=== PATIENT | male | born 1955 | race Caucasian/White ===

== ENCOUNTER 2017-11-17 13:50 | Emergency (ER) | payer OTHER ==
[2017-11-17 15:53] LABS: Absolute Lymphocytes (CBC) 1.6 K/uL (0.7-4.9); Absolute Monocytes 0.8 K/uL (0.1-1.3); Absolute Neutrophil 4.9 K/uL (1.8-8.0); Basophils % 0.3 % (0-1.3); Hematocrit 42.8 % (39.6-49.0); Lymphocytes % 21.7 % (15.3-44.8); MCH 30.2 pg (27.0-35.0); MCV 87.9 fL (80-100); MPV 7.7 fL (7.6-11.3); Monocytes % 10.5 % (3.3-12.3); RBC Red Blood Cell Count 4.87 M/uL (4.33-5.43)
[2017-11-17 16:11] LABS: Potassium 3.4 mmol/L (3.5-5.1)
--- NOTE | 2017-11-17 16:17 | RAD REPORT ---
EXAM DESCRIPTION: Diane Single View11/17/2017 4:11 pm CLINICAL HISTORY: cough COMPARISON: none FINDINGS: The lungs appear clear of acute infiltrate. The heart is normal size IMPRESSION: No acute abnormalities displayed
--- NOTE | 2017-11-17 16:20 | EKG ---
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
[2017-11-17 16:38] LABS: Urine Blood 1+ (NEG); Urine Glucose TRACE (NEG); Urine Protein 3+ (NEG); Urine pH 5.5 (5.0-7.0)
--- NOTE | 2017-11-17 18:27 | ER ---
Nurse's Notes [facility] Name: Amadeo Goldberg Age: 61 yrs Sex: Male : 1955 Arrival Date: 11/17/2017 Time: 13:55 Bed 28 Private MD: Diagnosis: Weakness;Bronchitis, not specified as acute or chronic;Hypotension Presentation: 11/17 13:55 Presenting complaint: Patient states: "I was at work and saw the doctor there and they aa5 said my blood pressure was low like 80/50 and my heart rate was 109". Pt states "I saw the doctor because I was feeling weak, sweaty, and having chest congestion". Transition of care: patient was not received from another setting of care. Onset of symptoms was November 2017. Risk Assessment: Do you want to hurt yourself or someone else? Patient reports no desire to harm self or others. Initial Sepsis Screen: Does the patient meet any 2 criteria? No. Patient's initial sepsis screen is negative. Does the patient have a suspected source of infection? No. Patient's initial sepsis screen is negative. Care prior to arrival: None. 13:55 Method Of Arrival: Wheelchair aa5 13:55 Acuity: NESSA 3 aa5 Historical: - Allergies: 13:57 PENICILLINS; aa5 - Home Meds: 13:57 Lisinopril Oral [Active]; Metformin Oral [Active]; aa5 - PMHx: 13:57 Hypertension; Diabetes - NIDDM; aa5 - Immunization history:: Adult Immunizations unknown. - Social history:: Smoking status: Patient/guardian denies using tobacco. - Ebola Screening: : No symptoms or risks identified at this time. Screenin:47 Abuse screen: Denies threats or abuse. Nutritional screening: No deficits noted. mb3 Tuberculosis screening: No symptoms or risk factors identified. Fall Risk None identified. Assessment: 16:53 General: Appears in no apparent distress. comfortable, Behavior is calm, cooperative, mb3 appropriate for age. Pain: Complains of pain in pt c/o generalized pain all over. Neuro: No deficits noted. Level of Consciousness is awake, alert, obeys commands, Oriented to person, place, time, situation, Appropriate for age. Cardiovascular: No deficits noted. Heart tones S1 S2 present Capillary refill < 3 seconds Patient's skin is warm and dry. Pulses are all present. Respiratory: No deficits noted. Airway is patent Respiratory effort is even, unlabored, Respiratory pattern is regular, symmetrical, Breath sounds are clear bilaterally. GI: Abdomen is flat, Bowel sounds present X 4 quads. Abd is soft and non tender. : No signs and/or symptoms were reported regarding the genitourinary system. EENT: No signs and/or symptoms were reported regarding the EENT system. Derm: No signs and/or symptoms reported regarding the dermatologic system. 18:09 Reassessment: Patient and/or family updated on plan of care and expected duration. Pain mb3 level reassessed. Patient is alert, oriented x 3, equal unlabored respirations, skin warm/dry/pink. Patient denies pain at this time. Patient states feeling better. Patient states symptoms have improved. Vital Signs: 13:57 BP 98 / 74; Pulse 109; Resp 18 S; Temp 97.3(TE); Pulse Ox 95% on R/A; Weight 108.86 kg aa5 (R); Height 5 ft. 10 in. (177.80 cm) (R); Pain 0/10; 16:53 BP 109 / 75; Pulse 88; Resp 16; Pulse Ox 97% on R/A; mb3 18:09 BP 122 / 72; Pulse 86; Resp 18; Pulse Ox 98% on R/A; Pain 0/10; mb3 18:32 BP 108 / 83; Pulse 86; Resp 16; Pulse Ox 99% on R/A; mb3 13:57 Body Mass Index 34.44 (108.86 kg, 177.80 cm) aa5 ED Course: 13:55 Patient arrived in ED. aa5 13:56 Triage completed. aa5 13:56 Arm band placed on. aa5 14:02 Toña Salazar, SARAH is Primary Nurse. kr2 14:20 EKG done, by diagnostics tech. reviewed by Jon Zarate MD. sm3 14:49 Jon Zarate MD is Attending Physician. kdr 15:35 Inserted saline lock: 22 gauge in left forearm, using aseptic technique. Blood mb3 collected. 16:00 CXR XRAY Sent. mb3 16:06 X-ray completed. Portable x-ray completed in exam room. Patient tolerated procedure mh1 well. 16:09 CXR XRAY In Process Unspecified. EDMS 18:36 Patient has correct armband on for positive identification. mb3 18:36 No provider procedures requiring assistance completed. IV discontinued, intact, mb3 bleeding controlled, No redness/swelling at site. Pressure dressing applied. Administered Medications: 15:35 Drug: NS 0.9% 500 ml Route: IV; Rate: bolus; Site: left forearm; mb3 18:32 Follow up: Response: No adverse reaction; IV Status: Completed infusion; IV Intake: mb3 500ml 16:00 Drug: LevaQUIN 500 mg Route: PO; mb3 18:31 Follow up: Response: No adverse reaction mb3 Point of Care Testing: Blood Glucose: 14:05 Blood Glucose: 184 mg/dL; aa5 Ranges: Intake: 18:32 IV: 500ml; Total: 500ml. mb3 Outcome: 18:26 Discharge ordered by . kdr 18:35 Discharged to home ambulatory, with family. mb3 18:35 Condition: stable 18:35 Discharge instructions given to patient, Instructed on discharge instructions, follow up and referral plans. medication usage, Demonstrated understanding of instructions, follow-up care, medications, Prescriptions given X 2. 18:36 Patient left the ED. mb3 Addendum: 11/21/2017 11:14 Addendum: Culture Results: Positive urine culture. No further action required. Other: a a5 per KYA Zimmerman. Bacteria is resistant to, has intermediate sensitivity, or is not tested against prescribed antibiotics. Report given to LESTER for further evaluation and then to house detective for follow up with patient. Signatures: Dispatcher [employer] EDAK Jon Zarate MD MD [facility] Marivel Agee 1 Mary Ellen Deleon, RN RN aa5 Toña Salzaar RN RN kr2 Daniel Todd, SARAH RN mb3 Radha Pandya 3 Corrections: (The following items were deleted from the chart) 11/17 14:11 14:05 Blood Glucose: Blood Glucose Zvtpfys=334 mg/dL. mb3 aa5
--- NOTE | 2017-11-17 18:37 | EDPHYS ---
Physician Documentation [facility] Name: Amadeo Goldberg Age: 61 yrs Sex: Male : 1955 Arrival Date: 11/17/2017 Time: 13:55 Bed 28 Private MD: ED Physician Jon Zarate HPI: 11/17 18:37 This 61 yrs old Male presents to ER via Wheelchair with complaints of Blood kdr Pressure Problem - Hypotension. 18:38 The patient was generally feeling poorly and went to see his [facility] doctor who noted kdr that his BP was low. He has been having URI s/s for a couple of days and had been taking Mucinex. He has no other c/o in the ED. 11/18 11:31 Onset: The symptoms/episode began/occurred gradually, 3 day(s) ago. Severity of kdr symptoms: At their worst the symptoms were mild in the emergency department the symptoms have improved mildly. The patient has not experienced similar symptoms in the past. The patient has been recently seen by a physician: Was seen by the [facility] clinic MD and noted to have low BP. Historical: - Allergies: 11/17 13:57 PENICILLINS; aa5 - Home Meds: 13:57 Lisinopril Oral [Active]; Metformin Oral [Active]; aa5 - PMHx: 13:57 Hypertension; Diabetes - NIDDM; aa5 - Immunization history:: Adult Immunizations unknown. - Social history:: Smoking status: Patient/guardian denies using tobacco. - Ebola Screening: : No symptoms or risks identified at this time. ROS: 11/18 11:31 Constitutional: Negative for fever, chills, and weight loss - general weakness Eyes: kdr Negative for injury, pain, redness, and discharge, ENT: Negative for injury, pain, and discharge, Neck: Negative for injury, pain, and swelling, Cardiovascular: Negative for chest pain, palpitations, and edema, Abdomen/GI: Negative for abdominal pain, nausea, vomiting, diarrhea, and constipation, Back: Negative for injury and pain, : Negative for injury, bleeding, discharge, and swelling, MS/Extremity: Negative for injury and deformity, Skin: Negative for injury, rash, and discoloration, Neuro: Negative for headache, weakness, numbness, tingling, and seizure activity. Psych: Negative for depression, anxiety, suicide ideation, homicidal ideation, and hallucinations, Allergy/Immunology: Negative for hives, rash, and allergies, Endocrine: Negative for neck swelling, polydipsia, polyuria, polyphagia, and marked weight changes, Hematologic/Lymphatic: Negative for swollen nodes, abnormal bleeding, and unusual bruising. Respiratory: Positive for cough, with no reported sputum, Negative for dyspnea on exertion, hemoptysis, orthopnea, pleurisy, shortness of breath, sputum production, wheezing. Exam: 11:31 Constitutional: This is a well developed, well nourished patient who is awake, alert, kdr and in no acute distress. Head/Face: Normocephalic, atraumatic. Eyes: Pupils equal round and reactive to light, extra-ocular motions intact. Lids and lashes normal. Conjunctiva and sclera are non-icteric and not injected. Cornea within normal limits. Periorbital areas with no swelling, redness, or edema. Neck: Trachea midline, no thyromegaly or masses palpated, and no cervical lymphadenopathy. Supple, full range of motion without nuchal rigidity, or vertebral point tenderness. No Meningismus. Chest/axilla: Normal chest wall appearance and motion. Nontender with no deformity. No lesions are appreciated. Cardiovascular: Regular rate and rhythm with a normal S1 and S2. No gallops, murmurs, or rubs. Normal PMI, no JVD. No pulse deficits. Respiratory: Lungs have equal breath sounds bilaterally, clear to auscultation and percussion. No rales, rhonchi or wheezes noted. No increased work of breathing, no retractions or nasal flaring. Abdomen/GI: Soft, non-tender, with normal bowel sounds. No distension or tympany. No guarding or rebound. No evidence of tenderness throughout. Back: No spinal tenderness. No costovertebral tenderness. Full range of motion. Skin: Warm, dry with normal turgor. Normal color with no rashes, no lesions, and no evidence of cellulitis. MS/ Extremity: Pulses equal, no cyanosis. Neurovascular intact. Full, normal range of motion. Neuro: Awake and alert, GCS 15, oriented to person, place, time, and situation. Cranial nerves II-XII grossly intact. Motor strength 5/5 in all extremities. Sensory grossly intact. Cerebellar exam normal. Normal gait. Psych: Awake, alert, with orientation to person, place and time. Behavior, mood, and affect are within normal limits. Vital Signs: 11/17 13:57 BP 98 / 74; Pulse 109; Resp 18 S; Temp 97.3(TE); Pulse Ox 95% on R/A; Weight 108.86 kg aa5 (R); Height 5 ft. 10 in. (177.80 cm) (R); Pain 0/10; 16:53 BP 109 / 75; Pulse 88; Resp 16; Pulse Ox 97% on R/A; mb3 18:09 BP 122 / 72; Pulse 86; Resp 18; Pulse Ox 98% on R/A; Pain 0/10; mb3 18:32 BP 108 / 83; Pulse 86; Resp 16; Pulse Ox 99% on R/A; mb3 13:57 Body Mass Index 34.44 (108.86 kg, 177.80 cm) aa5 MDM: 15:14 The patient's pulmonary embolism risk score was calculated as follows: No Risks (0 Pts) kdr the patients heart rate is greater than 100 beats per minute (1.5 Pts) Total Score: 0-2 points. This patient was found to be at low risk for a pulmonary embolism by using the Well's assessment criteria. Data reviewed: vital signs, nurses notes, lab test result(s), EKG, radiologic studies. 18:26 Patient medically screened. [facility] 11/18 11:31 Counseling: I had a detailed discussion with the patient and/or guardian regarding: the kdr historical points, exam findings, and any diagnostic results supporting the discharge/admit diagnosis, lab results, radiology results, the need for outpatient follow up. Special discussion: I discussed with the patient/guardian in detail that at this point there is no indication for admission to the hospital. It is understood, however, that if the symptoms persist or worsen the patient needs to return immediately for re-evaluation. ED course: The patient was stable and BP improved - he was not orthostatic. 11/17 15:13 Order name: CBC with Diff; Complete Time: 16:58 kdr 11/17 15:13 Order name: Chem 7; Complete Time: 16:58 kdr 11/17 15:13 Order name: Blood Culture Adult (2) kdr 11/17 15:13 Order name: Urine Culture kdr 11/17 15:13 Order name: CXR XRAY; Complete Time: 16:58 kdr 11/17 15:52 Order name: Urine Dipstick--Ancillary (enter results); Complete Time: 16:58 eb 11/17 15:13 Order name: Urine Dipstick-Ancillary (obtain specimen); Complete Time: 15:46 kdr 11/17 15:50 Order name: EKG Electrocardiogram; Complete Time: 18:32 EDSC 11/17 16:59 Order name: Orthostatic Blood Pressure; Complete Time: 18:32 kdr Administered Medications: 11/17 15:35 Drug: NS 0.9% 500 ml Route: IV; Rate: bolus; Site: left forearm; mb3 18:32 Follow up: Response: No adverse reaction; IV Status: Completed infusion; IV Intake: mb3 500ml 16:00 Drug: LevaQUIN 500 mg Route: PO; mb3 18:31 Follow up: Response: No adverse reaction mb3 Point of Care Testing: Blood Glucose: 14:05 Blood Glucose: 184 mg/dL; aa5 Ranges: Critical Glucose Levels:Adult <50 mg/dl or >400 mg/dl <40 mg/dl or >180 mg/dl Disposition: 11/17/17 18:26 Discharged to Home. Impression: Weakness, Bronchitis, not specified as acute or chronic, Hypotension. - Condition is Stable. - Discharge Instructions: Acute Bronchitis, [id number], Weakness, [id number]. - Prescriptions for Zithromax Z- Wild 250 mg Oral Tablet - take 1 tablet by ORAL route as directed for 5 days Day 1 - take two (2) tablets one time. Day 2, 3, 4 , 5 take one (1) tablet once daily.; 6 tablet. Guaifenesin AC 10- 100 mg/5 mL Oral Liquid - take 10 milliliter by ORAL route every 4 hours As needed; 240 milliliter. - Medication Reconciliation Form, Thank You Letter, Antibiotic Education form. - Follow up: Private Physician; When: 2 - 3 days; Reason: If symptoms return, Further diagnostic work-up, Recheck today's complaints, Continuance of care, Re-evaluation by your physician. - Problem is new. - Symptoms have improved. Signatures: Dispatcher [facility] Jon Zarate MD MD kdr Mary Ellen Deleon, RN RN aa5 Todd, Daniel, RN RN mb3 Corrections: (The following items were deleted from the chart) 18:36 18:26 11/17/2017 18:26 Discharged to Home. Impression: Weakness; Bronchitis, not mb3 specified as acute or chronic; Hypotension. Condition is Stable. Forms are Medication Reconciliation Form, Thank You Letter, Antibiotic Education, Prescription Opioid Use. Follow up: Private Physician; When: 2 - 3 days; Reason: If symptoms return, Further diagnostic work-up, Recheck today's complaints, Continuance of care, Re-evaluation by your physician. Problem is new. Symptoms have improved. kdr
== END 2017-11-17 18:36 | disposition home or self-care (01) ==
LOC: ER 13:50
DX: R53.1 Weakness (principal); J40 Bronchitis, not specified as acute or chronic; I95.9 Hypotension, unspecified; I10 Essential (primary) hypertension; E11.9 Type 2 diabetes mellitus without complications; Z88.0 Allergy status to penicillin
CPT/HCPCS: 36415; 71045; 80048; 81003; 82962; 85025; 87040; 87077; 87086; 87088; 87186; 93005; 96360; 96361; 99284

== ENCOUNTER 2020-05-28 20:37 | Emergency (ER) | payer OTHER ==
[2020-05-28] MEDS ORDERED: METHYLPREDNISOLONE 125 MG INJ ONE (21:16)
[2020-05-28 21:39] LABS: Absolute Lymphocytes (CBC) 1.4 K/uL (0.7-4.9); Basophils % 0.3 % (0-1.3); Hematocrit 44.8 % (39.6-49.0); Lymphocytes % 21.8 % (15.3-44.8); MPV 8.3 fL (7.6-11.3); RBC Red Blood Cell Count 5.19 M/uL (4.33-5.43)
[2020-05-28 21:43] LABS: Protime INR 1.16
[2020-05-28 21:55] LABS: Urine Blood NEGATIVE (NEG); Urine Glucose NEGATIVE (NEG); Urine Protein 2+ (NEG); Urine Specific Gravity >1.030 (1.005-1.030)
[2020-05-28 21:57] LABS: ALT/SGPT 28 U/L (12-78); AST/SGOT 19 U/L (15-37); Albumin 3.4 g/dL (3.4-5.0); Alkaline Phosphatase 60 U/L (45-117); BUN Blood Urea Nitrogen 19 mg/dL (7-18); Bicarbonate 26 mmol/L (21-32); Bilirubin Direct 0.1 mg/dL (0-0.2); Bilirubin Total 0.7 mg/dL (0.2-1.0); Ferritin 798.2 ng/mL (26-388); Glucose Level 253 mg/dL (74-106); Lipase 151 U/L (73-393); Potassium 3.4 mmol/L (3.5-5.1); Protein, Total 7.1 g/dL (6.4-8.2); Sodium Level 131 mmol/L (136-145); Troponin (Emerg Dept Use Only) < 0.02 ng/mL (0.0-0.045)
[2020-05-28] MEDS ORDERED: NA CHLORIDE 0.9% 1,000 ML ONE ×2 (22:20→22:32)
--- NOTE | 2020-05-28 22:22 | EDPHYS ---
Physician Documentation [facility] Name: Amadeo Goldberg Age: 64 yrs Sex: Male : 1955 Arrival Date: 05/28/2020 Time: 20:38 Bed 5 Private MD: ED Physician Mark Kam HPI: 05/28 22:19 This 64 yrs old Male presents to ER via Ambulatory with complaints of kb Breathing Difficulty, COVID POSITIVE. 22:19 The patient has shortness of breath at rest. Onset: The symptoms/episode began/occurred kb last week. Duration: The symptoms are continuous. The patient's shortness of breath is aggravated by exertion. Associated signs and symptoms: Pertinent positives: non-productive cough, fever. Severity of symptoms: At their worst the symptoms were moderate in the emergency department the symptoms are unchanged. The patient has not experienced similar symptoms in the past. The patient has not recently seen a physician. Pt reports he developed bodyaches, fever and cough last Friday (10 days ago). Tested negative that day, but symptoms progressed. Retested this Friday (3 days ago) and was positive. Came in today because shortness of breath is getting worse.. Historical: - Allergies: 21:01 PENICILLINS; lp1 - Home Meds: 21:01 lisinopril Oral [Active]; Metformin Oral [Active]; Glimepiride Oral [Active]; lp1 - PMHx: 21:01 Diabetes - NIDDM; Hypertension; lp1 - PSHx: 21:01 None; lp1 - Immunization history:: Adult Immunizations up to date. - Social history:: Smoking status: Patient denies any tobacco usage or history of. ROS: 22:13 Cardiovascular: Negative for chest pain, palpitations, and edema, Abdomen/GI: Negative kb for abdominal pain, nausea, vomiting, diarrhea, and constipation, Back: Negative for injury and pain, MS/Extremity: Negative for injury and deformity, Skin: Negative for injury, rash, and discoloration, Neuro: Negative for headache, weakness, numbness, tingling, and seizure. 22:13 Constitutional: Positive for body aches, chills, fatigue, fever, malaise. 22:13 Respiratory: Positive for cough, shortness of breath. Exam: 22:13 Constitutional: This is a well developed, well nourished patient who is awake, alert, kb and in no acute distress. Head/Face: Normocephalic, atraumatic. Chest/axilla: Normal chest wall appearance and motion. Nontender with no deformity. No lesions are appreciated. Cardiovascular: Regular rate and rhythm with a normal S1 and S2. No gallops, murmurs, or rubs. Normal PMI, no JVD. No pulse deficits. Respiratory: Lungs have equal breath sounds bilaterally, clear to auscultation and percussion. No rales, rhonchi or wheezes noted. No increased work of breathing, no retractions or nasal flaring. Abdomen/GI: Soft, non-tender, with normal bowel sounds. No distension or tympany. No guarding or rebound. No evidence of tenderness throughout. Skin: Warm, dry with normal turgor. Normal color with no rashes, no lesions, and no evidence of cellulitis. MS/ Extremity: Pulses equal, no cyanosis. Neurovascular intact. Full, normal range of motion. Neuro: Awake and alert, GCS 15, oriented to person, place, time, and situation. Cranial nerves II-XII grossly intact. Motor strength 5/5 in all extremities. Sensory grossly intact. Cerebellar exam normal. Normal gait. Vital Signs: 20:56 BP 127 / 82; Pulse 121; Resp 20; Temp 98.5(O); Pulse Ox 95% on R/A; Weight 99.34 kg lp1 (R); Height 5 ft. 9 in. (175.26 cm); Pain 0/10; 21:46 BP 105 / 70; Pulse 102; Resp 20; Pulse Ox 95% on R/A; mg2 22:42 BP 110 / 69; Pulse 99; Resp 19; Pulse Ox 94% ; rr5 23:36 BP 121 / 86; Pulse 89; Resp 18; Temp 98; Pulse Ox 95% on R/A; mg2 20:56 Body Mass Index 32.34 (99.34 kg, 175.26 cm) lp1 MDM: 20:45 Patient medically screened. kb 22:18 Data reviewed: vital signs, nurses notes. Data interpreted: Pulse oximetry: on room air kb is 95 %. Interpretation: normal. Counseling: I had a detailed discussion with the patient and/or guardian regarding: the historical points, exam findings, and any diagnostic results supporting the discharge/admit diagnosis, lab results, radiology results, the need for outpatient follow up, a family practitioner, to return to the emergency department if symptoms worsen or persist or if there are any questions or concerns that arise at home. ED course: O2 sat 95-98% on room air during visit. Pt has pulse ox at home. Educated to use it to monitor oxygen at home. Pt will return for worsening symptoms, low O2 sat, any other concerns. . 05/28 20:52 Order name: Blood Culture Adult (2) kb 05/28 20:52 Order name: BMP; Complete Time: 22:07 kb 05/28 20:52 Order name: C-Reactive Protein; Complete Time: 22:07 kb 05/28 20:52 Order name: CBC with Diff; Complete Time: 21:46 kb 05/28 20:52 Order name: Ferritin; Complete Time: 22:07 kb 05/28 20:52 Order name: Lactate; Complete Time: 22:07 kb 05/28 20:52 Order name: LFT's; Complete Time: 22:07 kb 05/28 20:52 Order name: Lipase; Complete Time: 22:07 kb 05/28 20:52 Order name: Procalcitonin; Complete Time: 22:22 kb 05/28 20:52 Order name: PT-INR; Complete Time: :46 kb 05/28 20:52 Order name: Ptt, Activated; Complete Time: 21:46 kb 05/28 20:52 Order name: Troponin (emerg Dept Use Only); Complete Time: 22:07 kb 05/28 20:52 Order name: Urine Microscopic Only; Complete Time: 22:51 kb 05/28 21:54 Order name: Urine Dipstick--Ancillary (enter results) mw2 05/28 20:52 Order name: CXR XRAY kb 05/28 20:52 Order name: EKG; Complete Time: 20:53 kb 05/28 20:52 Order name: Cardiac monitoring; Complete Time: 21:27 kb 05/28 20:52 Order name: Droplet/Contact Precautions; Complete Time: 21:27 kb 05/28 20:52 Order name: EKG - Nurse/Tech; Complete Time: 21:27 kb 05/28 20:52 Order name: IV Start; Complete Time: 21:27 kb 05/28 20:52 Order name: Labs collected and sent; Complete Time: 21:28 kb 05/28 20:52 Order name: O2 Per Protocol; Complete Time: 21:28 kb 05/28 20:52 Order name: O2 Sat Monitoring; Complete Time: 21:28 kb 05/28 21:55 Order name: Urine Dipstick-Ancillary; Complete Time: 22:07 EDMS Administered Medications: 21:27 Drug: SOLU-Medrol 125 mg Route: IVP; Site: right forearm; mg2 22:10 Follow up: Response: No adverse reaction mg2 21:46 Drug: NS 0.9% 1000 ml Route: IV; Rate: 1000 ml; Site: right forearm; mg2 22:54 Follow up: Response: No adverse reaction; IV Status: Completed infusion; IV Intake: mg2 1000ml 22:29 Drug: NS 0.9% 1000 ml Route: IV; Rate: 1000 ml; Site: right forearm; mg2 23:36 Follow up: Response: No adverse reaction; IV Status: Completed infusion; IV Intake: mg2 1000ml Disposition: 05/29 04:04 Co-signature as Attending Physician, Mark Kam MD. [email or web address] Disposition: 05/28/20 22:21 Discharged to Home. Impression: Coronavirus infection, unspecified, Dehydration. - Condition is Stable. - Discharge Instructions: Dehydration, Adult, Viral Respiratory Infection, [id number], COVID-19. - Prescriptions for Prednisone 20 mg Oral Tablet - take 2 tablet by ORAL route once daily for 5 days; 10 tablet. Albuterol Sulfate 90 mcg/actuation - inhale 1-2 puff by INHALATION route every 4-6 hours; 1 Inhaler. - Medication Reconciliation Form, Thank You Letter, Antibiotic Education, Prescription Opioid Use form. - Follow up: Private Physician; When: 2 - 3 days; Reason: Recheck today's complaints, Continuance of care, Re-evaluation by your physician. Follow up: Emergency Department; When: As needed; Reason: Worsening of condition. Signatures: Dispatcher [employer] Ruby Weinstein, RODNEY UNDERWOOD-Caity Ram, RN RN lp1 Benjamin Baker RN RN mg2 Mark Kam MD MD 7 Corrections: (The following items were deleted from the chart) 05/28 23:37 22:21 05/28/2020 22:21 Discharged to Home. Impression: Coronavirus infection, mg2 unspecified; Dehydration. Condition is Stable. Forms are Medication Reconciliation Form, Thank You Letter, Antibiotic Education, Prescription Opioid Use. Follow up: Private Physician; When: 2 - 3 days; Reason: Recheck today's complaints, Continuance of care, Re-evaluation by your physician. Follow up: Emergency Department; When: As needed; Reason: Worsening of condition. kb
--- NOTE | 2020-05-28 22:22 | ER ---
Nurse's Notes [facility] Name: Amadeo Goldberg Age: 64 yrs Sex: Male : 1955 Arrival Date: 05/28/2020 Time: 20:38 Bed 5 Private MD: Diagnosis: Coronavirus infection, unspecified;Dehydration Presentation: 05/28 20:56 Chief complaint: Patient states: Reports shortness of breath on exertion worsening; lp1 COVID POSITIVE result on 05/26/20; Denies any fever. Coronavirus screen: difficulty breathing, fatigue, shortness of breath, Client reports previous positive COVID test result. Date of collection: May 26, 2020. Ebola Screen: No symptoms or risks identified at this time. Initial Sepsis Screen: Does the patient meet any 2 criteria? HR > 90 bpm. Does the patient have a suspected source of infection? Yes: Other: COVID. Risk Assessment: Do you want to hurt yourself or someone else? Patient reports no desire to harm self or others. Onset of symptoms was May 28, 2020. 20:56 Method Of Arrival: Ambulatory lp1 20:56 Acuity: NESSA 3 lp1 Historical: - Allergies: 21:01 PENICILLINS; lp1 - Home Meds: 21:01 lisinopril Oral [Active]; Metformin Oral [Active]; Glimepiride Oral [Active]; lp1 - PMHx: 21:01 Diabetes - NIDDM; Hypertension; lp1 - PSHx: 21:01 None; lp1 - Immunization history:: Adult Immunizations up to date. - Social history:: Smoking status: Patient denies any tobacco usage or history of. Screenin:01 Abuse screen: Denies threats or abuse. Denies injuries from another. Nutritional lp1 screening: No deficits noted. Tuberculosis screening: No symptoms or risk factors identified. Fall Risk None identified. Assessment: 21:09 General: Appears in no apparent distress. comfortable, Behavior is calm, cooperative. mg2 Pain: Denies pain. Neuro: Level of Consciousness is awake, alert, obeys commands, Oriented to person, place, time, situation. Cardiovascular: Rhythm is regular. Respiratory: Airway is patent Respiratory effort is even, unlabored, Respiratory pattern is regular. GI: No signs and/or symptoms were reported involving the gastrointestinal system. : No signs and/or symptoms were reported regarding the genitourinary system. EENT: No signs and/or symptoms were reported regarding the EENT system. Derm: Skin is intact, is healthy with good turgor, Skin is pink, warm \T\ dry. normal. Musculoskeletal: Circulation, motion, and sensation intact. Capillary refill < 3 seconds. 21:10 Respiratory: mg2 22:20 Reassessment: Patient appears in no apparent distress at this time. Patient is alert, rr5 oriented x 3, equal unlabored respirations, skin warm/dry/pink. ordered for discharge awaiting for fluid to consume. 23:36 Reassessment: Patient denies pain at this time. Patient states feeling better. Patient mg2 states symptoms have improved. Vital Signs: 20:56 BP 127 / 82; Pulse 121; Resp 20; Temp 98.5(O); Pulse Ox 95% on R/A; Weight 99.34 kg lp1 (R); Height 5 ft. 9 in. (175.26 cm); Pain 0/10; 21:46 BP 105 / 70; Pulse 102; Resp 20; Pulse Ox 95% on R/A; mg2 22:42 BP 110 / 69; Pulse 99; Resp 19; Pulse Ox 94% ; rr5 23:36 BP 121 / 86; Pulse 89; Resp 18; Temp 98; Pulse Ox 95% on R/A; mg2 20:56 Body Mass Index 32.34 (99.34 kg, 175.26 cm) lp1 ED Course: 20:38 Patient arrived in ED. cf2 20:45 Ruby Turpin FNP-C is [facility]. kb 20:45 Mark Kam MD is Attending Physician. kb 20:58 Benjamin Baker RN is Primary Nurse. mg2 21:00 Triage completed. lp1 21:00 Arm band placed on. lp1 21:10 Patient has correct armband on for positive identification. Pulse ox on. NIBP on. Door mg2 closed. Warm blanket given. 21:10 No provider procedures requiring assistance completed. mg2 21:15 CXR XRAY In Process Unspecified. EDMS 21:20 Inserted saline lock: 20 gauge 22 gauge in right forearm, using aseptic technique. rr5 Blood collected. 23:36 IV discontinued, intact, bleeding controlled, No redness/swelling at site. Pressure mg2 dressing applied. Administered Medications: 21:27 Drug: SOLU-Medrol 125 mg Route: IVP; Site: right forearm; mg2 22:10 Follow up: Response: No adverse reaction mg2 21:46 Drug: NS 0.9% 1000 ml Route: IV; Rate: 1000 ml; Site: right forearm; mg2 22:54 Follow up: Response: No adverse reaction; IV Status: Completed infusion; IV Intake: mg2 1000ml 22:29 Drug: NS 0.9% 1000 ml Route: IV; Rate: 1000 ml; Site: right forearm; mg2 23:36 Follow up: Response: No adverse reaction; IV Status: Completed infusion; IV Intake: mg2 1000ml Intake: 22:54 IV: 1000ml; Total: 1000ml. mg2 23:36 IV: 1000ml; Total: 2000ml. mg2 Outcome: 22:21 Discharge ordered by . kb 23:36 Discharged to home ambulatory. mg2 23:36 Condition: good 23:36 Discharge instructions given to patient, Instructed on discharge instructions, follow up and referral plans. medication usage, Demonstrated understanding of instructions, follow-up care, medications, Prescriptions given X 2. 23:37 Patient left the ED. mg2 Signatures: Dispatcher [employer] EDMS Ruby Turpin, CLINICAL EDUCATOR-C CLINICAL EDUCATOR-CkCaity Zelaya RN RN lp1 Benjamin Baker RN RN mg2 Leobardo Mendez RN RN rr5 Guy Garcia cf2
[2020-05-28 22:47] LABS: Urine Mucus 3+ /HPF (NONE SEEN)
[2020-05-28 22:48] LABS: Urine Bacteria <20 /HPF (NONE SEEN); Urine RBC NONE SEEN /HPF (NONE SEEN)
[2020-05-28 23:48] VITALS: BP 121/86; TEMP 98; O2SAT 95
--- NOTE | 2020-05-29 08:49 | RAD REPORT ---
EXAM DESCRIPTION: RAD - Chest Single View - 05/28/2020 9:15 pm CLINICAL HISTORY: COUGH, shortness of breath COMPARISON: Portable November 2017 TECHNIQUE: AP portable chest image was obtained 05/28/2020 9:15 pm . FINDINGS: Patient is an lordotic positioning and lung volumes are low compared to the prior study. Lungs are clear of focal infiltrates. Interstitial pattern matches comparison. Small 7 mm nodular den sity right apex may be part of anterior right second rib artifact. No correlate confirmed in 2018. Fo llow-up PA chest or Two view chest could be obtained to see if this is a persistent finding. Heart and vasculature are normal. No measurable pleural effusion and no pneumothorax. No acute bony a bnormality seen. No acute aortic findings suspected. IMPRESSION: No acute cardiopulmonary process. Small right apex nodule may be summation artifact but warrants follow-up chest film.
== END 2020-05-28 23:37 | disposition home or self-care (01) ==
LOC: ER 20:37
DX: U07.1 COVID-19 (principal); E86.0 Dehydration; I10 Essential (primary) hypertension; E11.9 Type 2 diabetes mellitus without complications; Z88.0 Allergy status to penicillin
CPT/HCPCS: 96361; 93005; 87040 ×2; 85025; 80048; 36415; 85610; 80076; 83605; 85730; 84484; 82728; 83690; 84145; 86140; 71045; 96374; 99284; J7030 ×2; J2930; 81003; 81015

== ENCOUNTER 2021-02-02 07:05 | Day surgery (SDC) | payer OTHER ==
[2021-02-02] MEDS ORDERED: NA CHLORIDE 0.9% 1,000 ML ONE (08:08)
[2021-02-02] MEDS ORDERED: LIDOCAINE 1% MPF 5 ML VIAL ONE (08:32)
[2021-02-02] MEDS ORDERED: propofoL 200 MG/20 ML VIAL IV ONE ×2 (08:32)
--- NOTE | 2021-02-02 09:07 | ENDO RPT ---
[address], [address] COLONOSCOPY PROCEDURE REPORT EXAM DATE: 02/02/2021 PATIENT NAME: Amadeo Goldberg MR #: [id number] BIRTHDATE: 1955 ATTENDING: Jimi Pitt DR STATUS: outpatient AUTOMAT WATCHER: Nicola Alonso CST and Karolina Watkins RN INDICATIONS: The patient is a 65 yr old Male here for a colonoscopy due to colon cancer screening PROCEDURE PERFORMED: Colonoscopy with biopsy - cold polypectomy MEDICATIONS: Per Anesthesia. ESTIMATED BLOOD LOSS: None CONSENT: The patient understands the risks and benefits of the procedure and understands that these risks include, but are not limited to: sedation, allergic reaction, infection, perforation and/or bleeding. Alternative means of evaluation and treatment include, among others: physical exam, x-rays, and/or surgical intervention. The patient elects to proceed with this endoscopic procedure. DESCRIPTION OF PROCEDURE: During intra-op preparation period all mechanical medical equipment was checked for proper function. Hand hygiene and appropriate measures for infection prevention was taken. Procedure, possible complications, alternatives including, but not limited to possibility of bleeding, perforation, tear, infection, sepsis, need for surgery, need for blood transfusion, were explained to the patient. After the risks, benefits and alternatives of the procedure were thoroughly explained, Informed consent was verified, confirmed and timeout was successfully executed by the treatment team. The patient was placed in the left lateral position. A digital rectal exam was performed and revealed external hemorrhoids and A digital rectal exam was performed and revealed internal hemorrhoids. After appropriate level of anesthesia, the scope was passed. The EC-[id number] ([id number]) endoscope was introduced through the anus and advanced to the cecum, which was identified by both the appendix and ileocecal valve. The quality of the prep was fair. The instrument was then slowly withdrawn as the colon was fully examined. Scope withdrawal time was 9 minutes. COLON FINDINGS: A smooth semi-pedunculated polyp ranging between 3-5mm in size with a friable surface was found in the sigmoid colon. A polypectomy was performed with a cold snare. The resection was complete, the polyp tissue was completely retrieved and sent to histology. Small internal and external hemorrhoids were found. Retroflexed views revealed no abnormalities. The scope was then completely withdrawn from the patient and the procedure terminated. ADVERSE EVENTS: There were no complications. IMPRESSIONS: 1. Semi-pedunculated polyp ranging between 3-5mm in size was found in the sigmoid colon; polypectomy was performed with a cold snare 2. Small internal and external hemorrhoids RECOMMENDATIONS: 1. avoid NSAIDS for 2 weeks 2. await biopsy results 3. fiber rich diet 4. follow-up: office 2 week(s) 5. Monitor for any evidence of rectal bleeding. 6. yearly hemoccult starting in 4 years 7. hemorrhoidal hygiene 8. increase dietary water RECALL: Return in 5 year(s) for Colonoscopy, pending biopsy results. Pending Biopsy Results Jimi Pitt DR eSigned: Jimi Pitt DR 02/02/2021 9:07 AM cc: CPT CODES: ICD9 CODES: PATIENT NAME: Amadeo Goldberg MR#: [id number]
[2021-02-02 09:26] VITALS: BP 106/75; TEMP 97.6; O2SAT 96
== END 2021-02-02 09:39 | disposition home or self-care (01) ==
LOC: OR 07:05
PROVIDERS: ATTEND Surgery
PROC: 0DBN8ZX Excision of Sigmoid Colon, Via Natural or Artificial Opening Endoscopic, Diagnostic (ICD-10-PCS; principal; 2021-02-02 08:15)
DX: Z86.010 Personal history of colon polyps (principal); E11.9 Type 2 diabetes mellitus without complications; Z88.0 Allergy status to penicillin; Z20.822 Contact with and (suspected) exposure to COVID-19; K64.8 Other hemorrhoids; K64.4 Residual hemorrhoidal skin tags
CPT/HCPCS: 82947; 45380; U0002; J2704 ×2; J7030

== ENCOUNTER 2021-06-05 18:26 | Emergency (ER) | payer OTHER ==
[2021-06-05] MEDS ORDERED: MAGNES/ALUMIN/SIMET 30ML UCUP ONE (19:32)
[2021-06-05] MEDS ORDERED: LIDOCAINE VISCOUS 2% SOLN 15 ML UDC ONE (19:32)
[2021-06-05] MEDS ORDERED: NA CHLORIDE 0.9% 1,000 ML ONE ×2 (19:55→22:43)
[2021-06-05] MEDS ORDERED: METHYLPREDNISOLONE 125 MG INJ ONE (19:55)
[2021-06-05] MEDS ORDERED: DIPHENHYDRAMINE 50 MG/ML VIAL ONE (19:55)
[2021-06-05 20:22] LABS: Absolute Lymphocytes (CBC) 2.1 K/uL (0.7-4.9); Hematocrit 48.7 % (39.6-49.0); Lymphocytes % 15.7 % (15.3-44.8); MPV 7.2 fL (7.6-11.3)
--- NOTE | 2021-06-05 21:23 | RAD REPORT ---
EXAM DESCRIPTION: CTAbdomen Pelvis W Contrast - 06/05/2021 9:13 pm CLINICAL HISTORY: Abdominal pain. Abd pain;Nausea / vomiting COMPARISON: No comparisons TECHNIQUE: Biphasic CT imaging of the abdomen and pelvis was performed with 100 ml non-ionic IV cont rast. All CT scans are performed using dose optimization technique as appropriate and may include automated exposure control or mA/KV adjustment according to patient size. FINDINGS: The lung bases are clear. The liver demonstrates diffuse fatty infiltration. The spleen, pancreas, adrenal glands and kidneys a re within normal limits. Mucosal thickening enhancement is seen involving the terminal ileum and the cecum and trace free flui d is seen in the right upper quadrant adjacent to the right lobe of the liver. No bowel obstruction, free air or abscess. The appendix is normal. No evidence of significant lymphadenopathy. Fat contain ing bilateral inguinal hernias are present, slightly larger on the left. Mild lumbosacral degenerative changes. IMPRESSION: Mild inflammatory changes involving the terminal ileum and cecum could indicate inflamma tory bowel disease such as Crohn's disease. Another possibility would be colitis with ileitis present . Diffuse fatty liver.
[2021-06-05] MEDS ORDERED: CIPROFLOXACIN 400mg IV 400 MG/200 ML BAG IV ONE (21:49)
[2021-06-05] MEDS ORDERED: NA CHLORIDE 0.9% 0 ML ONE (21:49)
[2021-06-05] MEDS ORDERED: METRONIDAZOLE 500mg IVPB 500 MG/100 ML BAG IV ONE (21:49)
[2021-06-05 21:52] LABS: Albumin 3.8 g/dL (3.4-5.0); Bilirubin Direct 0.2 mg/dL (0-0.2); Bilirubin Total 0.6 mg/dL (0.2-1.0); Potassium 3.6 mmol/L (3.5-5.1)
--- NOTE | 2021-06-05 23:34 | ER ---
Nurse's Notes [facility] Name: Georgi Goldberg Age: 65 yrs Sex: Male : 1955 Arrival Date: 06/05/2021 Time: 18:27 Bed 2 Private MD: Diagnosis: Infectious gastroenteritis and colitis, unspecified;Dehydration Presentation: 06/05 18:40 Chief complaint: Patient states: Pt presents to ed for c/o nausea that began this ab2 morning. Pt also c/o diaphoresis and near syncope episodes that have happened today. Coronavirus screen: Vaccine status: Patient reports receiving the 2nd dose of the covid vaccine. Client denies travel out of the [place] in the last 14 days. At this time, the client does not indicate any symptoms associated with coronavirus-19. Ebola Screen: Patient negative for fever greater than or equal to 101.5 degrees Fahrenheit, and additional compatible Ebola Virus Disease symptoms Patient denies exposure to infectious person. Patient denies travel to an Ebola-affected area in the 21 days before illness onset. No symptoms or risks identified at this time. Initial Sepsis Screen: Does the patient meet any 2 criteria? No. Patient's initial sepsis screen is negative. Does the patient have a suspected source of infection? No. Patient's initial sepsis screen is negative. Risk Assessment: Do you want to hurt yourself or someone else? Patient reports no desire to harm self or others. Onset of symptoms was June 05, 2021 at 07:00. 18:40 Method Of Arrival: Ambulatory ab2 18:40 Acuity: NESSA 3 ab2 Triage Assessment: 18:43 General: Appears in no apparent distress. Behavior is calm, cooperative, appropriate ab2 for age. Pain: Denies pain. EENT: No deficits noted. No signs and/or symptoms were reported regarding the EENT system. Neuro: No deficits noted. Level of Consciousness is awake, alert, obeys commands, Oriented to person, place, time, situation, Appropriate for age [place] are equal bilaterally Moves all extremities. Gait is steady, Speech is normal. Cardiovascular: Reports diaphoresis, nausea, Heart tones S1 S2 present Chest pain is denied. Respiratory: No deficits noted. Airway is patent Breath sounds are clear bilaterally. GI: No deficits noted. No signs and/or symptoms were reported involving the gastrointestinal system. Abdomen is round non-distended, Reports diarrhea, nausea, vomiting. : No deficits noted. No signs and/or symptoms were reported regarding the genitourinary system. Derm: No deficits noted. No signs and/or symptoms reported regarding the dermatologic system. Musculoskeletal: No deficits noted. No signs and/or symptoms reported regarding the musculoskeletal system. Historical: - Allergies: 18:42 PENICILLINS; ab2 - Home Meds: 18:42 Glimepiride Oral [Active]; lisinopril Oral [Active]; Metformin Oral [Active]; ab2 - PMHx: 18:42 Diabetes - NIDDM; Hypertension; ab2 - Immunization history:: Adult Immunizations up to date. - Social history:: Smoking status: Patient denies any tobacco usage or history of. - Family history:: not pertinent. - Hospitalizations: : No recent hospitalization is reported. Screenin:43 Abuse screen: Denies threats or abuse. Denies injuries from another. Nutritional ab2 screening: No deficits noted. Tuberculosis screening: No symptoms or risk factors identified. Fall Risk None identified. Assessment: 19:44 General: Reports " I was feeling nausea and my sister gave me a medication called tw5 nauzeine. About 5 min later I started breaking out in hives. Itching, scratching all under my arms.". 19:46 Pain: Complains of pain in xiphoid area Pain currently is 5 out of 10 on a pain scale. tw5 Quality of pain is described as crampy. Cardiovascular: Heart tones S1 S2 present Rhythm is sinus rhythm. Respiratory: Airway is patent Trachea midline Respiratory effort is even, unlabored. GI: Bowel sounds present X 4 quads. Reports upper abdominal pain, nausea. GI: Abd is soft and non tender. 19:46 General: Reports " I was scared I was having a heart attack because the pain and tw5 nausea.". 20:07 General: Reports " I feel like I am going to pass out." Patient became sweaty and pale. tw5 Nursing staff had patient lay back and take slow deep breaths. 20:10 Reassessment: Patient states feeling better. " I am feeling a little better now". tw5 20:34 Reassessment: Patient states feeling better. Patient states symptoms have improved. " I tw5 am feeling a whole lot better now." Patient states that itching is better. 23:41 Pain: Denies pain. GI: Abdomen is non-distended. tw5 Vital Signs: 18:40 BP 122 / 74; Pulse 96; Resp 16; Temp 98.1(T); Pulse Ox 98% ; Weight 98.88 kg; Height 5 ab2 ft. 9 in. (175.26 cm); Pain 0/10; 19:44 BP 89 / 66; Pulse 101; Resp 20; Pulse Ox 98% on R/A; tw5 20:07 BP 69 / 51; Pulse 86; Resp 13; Pulse Ox 99% on R/A; tw5 20:10 BP 84 / 58; Pulse 79; Resp 18; Pulse Ox 96% on R/A; tw5 20:34 BP 109 / 76; Pulse 81; Resp 20; Pulse Ox 100% on R/A; tw5 21:43 BP 113 / 61; Pulse 80; Resp 18 S; Pulse Ox 98% on R/A; as6 22:47 BP 106 / 63; Pulse 107; Resp 18 S; Pulse Ox 99% on R/A; as6 23:41 BP 95 / 64; Pulse 84; Resp 18; Pulse Ox 98% on R/A; tw5 18:40 Body Mass Index 32.19 (98.88 kg, 175.26 cm) ab2 ED Course: 18:27 Patient arrived in ED. as 18:42 Triage completed. ab2 18:44 Arm band placed on right wrist. ab2 19:20 Benito Knutson MD is Attending Physician. rn 19:28 Naomi Ramachandran is Primary Nurse. tw5 19:40 EKG done, by ED staff, reviewed by Benito Knutson MD. tw5 19:46 Patient has correct armband on for positive identification. Placed in gown. Bed in low tw5 position. Call light in reach. Side rails up X2. Adult w/ patient. aircraft engine installer on. Pulse ox on. NIBP on. Notified ED physician of other Hives on patient. Door closed. Noise minimized. Moved to private room. Warm blanket given. Verbal reassurance given. 20:06 Troponin High Sensitivity Sent. tw5 20:06 Basic Metabolic Panel Sent. tw5 20:06 Basic Metabolic Panel Sent. tw5 20:07 Notified ED physician of vital signs. tw5 20:07 Initial lab(s) drawn, by me, sent to lab. COVID swab sent to lab. Inserted saline lock: tw5 20 gauge in right antecubital area, using aseptic technique. Blood collected. 20:36 COVID-19 SARS RT PCR (Document "Date of Onset" if Symptomatic) Sent. tw5 20:36 Basic Metabolic Panel Sent. tw5 20:36 Troponin High Sensitivity Sent. tw5 20:36 Hepatic Function Sent. tw5 20:36 Lipase Sent. tw5 21:13 CT Abd/Pelvis - IV Contrast Only In Process Unspecified. EDMS 23:33 Fernie Najera MD is Referral Physician. rn 23:41 No provider procedures requiring assistance completed. Patient did not have IV access tw5 during this emergency room visit. intact, bleeding controlled, No redness/swelling at site. Pressure dressing applied. Administered Medications: 19:44 Drug: GI Cocktail without - (Maalox Suspension 30 ml, Lidocaine Liquid 2 % 15 tw5 ml) Route: PO; 20:36 Follow up: Response: No adverse reaction tw5 20:06 Drug: Benadryl (diphenhydrAMINE) 25 mg Route: IVP; Site: right antecubital; tw5 20:36 Follow up: Response: No adverse reaction; Marked relief of symptoms tw5 20:06 Drug: SOLU-Medrol (methylPrednisoLONE) 125 mg Route: IVP; Site: right antecubital; tw5 20:35 Follow up: Response: No adverse reaction; Marked relief of symptoms tw5 20:06 Drug: NS 0.9% 1000 ml Route: IV; Rate: 1000 ml; Site: right antecubital; tw5 20:36 Follow up: Response: No adverse reaction; Marked relief of symptoms; Blood pressure is tw5 elevated; IV Status: Completed infusion; IV Intake: 1000ml 21:52 Drug: Cipro (ciprofloxacin) 400 mg Volume: 200 ml; Route: IVPB; Infused Over: 60 mins; as6 Site: right antecubital; 22:46 Follow up: Response: No adverse reaction; IV Status: Completed infusion; IV Intake: as6 200ml 22:46 Drug: Flagyl (metroNIDAZOLE) 500 mg Volume: 100 ml; Route: IVPB; Rate: 200 ml/hr; as6 Infused Over: 30 mins; Site: right antecubital; 23:40 Follow up: Response: No adverse reaction; IV Status: Completed infusion; IV Intake: as6 100ml 22:46 Drug: NS 0.9% 1000 ml Route: IV; Rate: 1000 ml; Site: right antecubital; as6 23:40 Follow up: Response: No adverse reaction; IV Status: Completed infusion; IV Intake: as6 1000ml Intake: 20:36 IV: 1000ml; Total: 1000ml. tw5 22:46 IV: 200ml; Total: 1200ml. as6 23:40 IV: 1000ml; Total: 2200ml. as6 23:40 IV: 100ml; Total: 2300ml. as6 Outcome: 23:33 Discharge ordered by . rn 23:43 Discharged to home ambulatory. tw5 23:43 Condition: improved 23:43 Discharge instructions given to patient, Instructed on discharge instructions, follow up and referral plans. medication usage, Demonstrated understanding of instructions, follow-up care, medications, Prescriptions given X 3. 23:47 Patient left the ED. tw5 Signatures: Dispatcher [employer] Yessica Beltran Roman, MD MD rn Wood, Tiffany tw5 Calvin Guerrero RN RN as6 Urban Zaldivar ab2
--- NOTE | 2021-06-05 23:34 | EDPHYS ---
Physician Documentation [facility] Name: Georgi Goldberg Age: 65 yrs Sex: Male : 1955 Arrival Date: 06/05/2021 Time: 18:27 Bed 2 Private MD: ED Physician Benito Knutson HPI: 06/05 19:40 This 65 yrs old Male presents to ER via Ambulatory with complaints of Nausea, abdominal rn pain. 19:41 The patient presents with abdominal pain in the epigastric area. Onset: The rn symptoms/episode began/occurred this morning. The symptoms do not radiate. Associated signs and symptoms: Pertinent positives: diarrhea, nausea, Pertinent negatives: blood in stools, chest pain, dysuria, fever, shortness of breath, testicular pain, vomiting blood. The symptoms are described as crampy. Modifying factors: The symptoms are alleviated by nothing, the symptoms are aggravated by nothing. Severity of pain: At its worst the pain was mild in the emergency department the pain is unchanged. The patient has not experienced similar symptoms in the past. The patient has not recently seen a physician. Patient reports epigastric abdominal pain and nausea that began this morning, associated with nonbloody diarrhea, denies chest pain or shortness of breath. No recent infection. [place] fine yesterday. Reports burps smell like rotten egg.. Historical: - Allergies: 18:42 PENICILLINS; ab2 - Home Meds: 18:42 Glimepiride Oral [Active]; lisinopril Oral [Active]; Metformin Oral [Active]; ab2 - PMHx: 18:42 Diabetes - NIDDM; Hypertension; ab2 - Immunization history:: Adult Immunizations up to date. - Social history:: Smoking status: Patient denies any tobacco usage or history of. - Family history:: not pertinent. - Hospitalizations: : No recent hospitalization is reported. ROS: 19:41 Constitutional: Negative for fever, chills, and weight loss, Eyes: Negative for injury, rn pain, redness, and discharge, Neck: Negative for injury, pain, and swelling, Cardiovascular: Negative for chest pain, palpitations, and edema, Respiratory: Negative for shortness of breath, cough, wheezing, and pleuritic chest pain, Abdomen/GI: Positive for epigastric abdominal pain/nausea/diarrhea Back: Negative for injury and pain, : Negative for injury, bleeding, discharge, and swelling, MS/Extremity: Negative for injury and deformity, Skin: Negative for injury, rash, and discoloration, Neuro: Negative for headache, weakness, numbness, tingling, and seizure. 19:41 All other systems are negative. rn Exam: 19:41 Constitutional: This is a well developed, well nourished patient who is awake, alert, rn and in no acute distress. Head/Face: Normocephalic, atraumatic. Eyes: Periorbital areas with no swelling, redness, or edema. Cardiovascular: Regular rate and rhythm. No pulse deficits. Respiratory: No increased work of breathing, no retractions or nasal flaring. Abdomen/GI: Soft, mild epigastric tenderness, negative rebound, negative Santiago Skin: Warm, dry MS/ Extremity: Pulses equal, no cyanosis. Neuro: Awake and alert, GCS 15 19:41 ECG was reviewed by the Attending Physician. rn Vital Signs: 18:40 BP 122 / 74; Pulse 96; Resp 16; Temp 98.1(T); Pulse Ox 98% ; Weight 98.88 kg; Height 5 ab2 ft. 9 in. (175.26 cm); Pain 0/10; 19:44 BP 89 / 66; Pulse 101; Resp 20; Pulse Ox 98% on R/A; tw5 20:07 BP 69 / 51; Pulse 86; Resp 13; Pulse Ox 99% on R/A; tw5 20:10 BP 84 / 58; Pulse 79; Resp 18; Pulse Ox 96% on R/A; tw5 20:34 BP 109 / 76; Pulse 81; Resp 20; Pulse Ox 100% on R/A; tw5 21:43 BP 113 / 61; Pulse 80; Resp 18 S; Pulse Ox 98% on R/A; as6 22:47 BP 106 / 63; Pulse 107; Resp 18 S; Pulse Ox 99% on R/A; as6 23:41 BP 95 / 64; Pulse 84; Resp 18; Pulse Ox 98% on R/A; tw5 18:40 Body Mass Index 32.19 (98.88 kg, 175.26 cm) ab2 MDM: 19:20 Patient medically screened. rn 19:52 ED course: Patient reports family member gave him nausene for his nausea, states his rn itching and had some hives in his axilla. Steroids, fluids and Benadryl ordered.. 21:33 ED course: Pt feels better, CT shows colitis/ileitis, pending blood tests, if wnl, plan rn to dc home if continues to improve. . 23:32 Differential diagnosis: appendicitis, bowel obstruction, cholecystitis, Cholelithiasis, rn diverticulitis, gastritis, gastroesophageal reflux disease, non-specific abd pain, pancreatitis. Data reviewed: vital signs, nurses notes, lab test result(s), radiologic studies, CT scan, and as a result, I will discharge patient. Counseling: I had a detailed discussion with the patient and/or guardian regarding: the historical points, exam findings, and any diagnostic results supporting the discharge/admit diagnosis, lab results, radiology results, the need for outpatient follow up, to return to the emergency department if symptoms worsen or persist or if there are any questions or concerns that arise at home. Response to treatment: the patient's symptoms have markedly improved after treatment, and as a result, I will discharge patient. 06/05 19:28 Order name: Basic Metabolic Panel rn 06/05 19:28 Order name: CBC with Diff; Complete Time: 20:40 rn 06/05 19:28 Order name: Hepatic Function; Complete Time: 22:30 rn 06/05 19:28 Order name: Lipase; Complete Time: 22:30 rn 06/05 19:28 Order name: Troponin High Sensitivity; Complete Time: 22:30 rn 06/05 19:29 Order name: Basic Metabolic Panel; Complete Time: 22:30 EDNC 06/05 19:28 Order name: CT Abd/Pelvis - IV Contrast Only; Complete Time: 21:25 rn 06/05 19:29 Order name: COVID-19 SARS RT PCR (Document "Date of Onset" if Symptomatic); Complete rn Time: 21:06/05 22:45 Order name: CREATININE WHOLE BLOOD; Complete Time: 23:28 EDNC 06/05 19:28 Order name: IV Saline Lock; Complete Time: 20:06 rn 06/05 19:28 Order name: Labs collected and sent; Complete Time: 20:07 rn 06/05 19:28 Order name: EKG; Complete Time: 19:29 rn 06/05 19:28 Order name: EKG - Nurse/Tech; Complete Time: 19:40 rn EC:41 Rate is 102 beats/min. Rhythm is regular. QRS is positive in lead I and negative in rn lead aVF. ID interval is normal. QRS interval is normal. QT interval is normal. No Q waves. T waves are Normal. No ST changes noted. Clinical impression: Sinus tachycardia. Interpreted by me. Administered Medications: 19:44 Drug: GI Cocktail without - (Maalox Suspension 30 ml, Lidocaine Liquid 2 % 15 tw5 ml) Route: PO; 20:36 Follow up: Response: No adverse reaction tw5 20:06 Drug: Benadryl (diphenhydrAMINE) 25 mg Route: IVP; Site: right antecubital; tw5 20:36 Follow up: Response: No adverse reaction; Marked relief of symptoms tw5 20:06 Drug: SOLU-Medrol (methylPrednisoLONE) 125 mg Route: IVP; Site: right antecubital; tw5 20:35 Follow up: Response: No adverse reaction; Marked relief of symptoms tw5 20:06 Drug: NS 0.9% 1000 ml Route: IV; Rate: 1000 ml; Site: right antecubital; tw5 20:36 Follow up: Response: No adverse reaction; Marked relief of symptoms; Blood pressure is tw5 elevated; IV Status: Completed infusion; IV Intake: 1000ml 21:52 Drug: Cipro (ciprofloxacin) 400 mg Volume: 200 ml; Route: IVPB; Infused Over: 60 mins; as6 Site: right antecubital; 22:46 Follow up: Response: No adverse reaction; IV Status: Completed infusion; IV Intake: as6 200ml 22:46 Drug: Flagyl (metroNIDAZOLE) 500 mg Volume: 100 ml; Route: IVPB; Rate: 200 ml/hr; as6 Infused Over: 30 mins; Site: right antecubital; 23:40 Follow up: Response: No adverse reaction; IV Status: Completed infusion; IV Intake: as6 100ml 22:46 Drug: NS 0.9% 1000 ml Route: IV; Rate: 1000 ml; Site: right antecubital; as6 23:40 Follow up: Response: No adverse reaction; IV Status: Completed infusion; IV Intake: as6 1000ml Disposition Summary: 06/05/21 23:33 Discharge Ordered Location: Home rn Problem: new rn Symptoms: have improved rn Condition: Stable rn Diagnosis - Infectious gastroenteritis and colitis, unspecified rn - Dehydration rn Followup: rn - With: - When: As needed - Reason: Recheck today's complaints, Re-evaluation by your physician Discharge Instructions: - Discharge Summary Sheet rn - Colitis rn Forms: - Medication Reconciliation Form rn - Thank You Letter rn - Antibiotic furniture mover driver - Prescription Opioid Use rn Prescriptions: - Flagyl 500 mg Oral Tablet - take 1 tablet by ORAL route every 8 hours for 10 days; 30 tablet; Refills: 0, rn Product Selection Permitted - Cipro 500 mg Oral Tablet - take 1 tablet by ORAL route every 12 hours for 10 days; 20 tablet; Refills: 0, rn Product Selection Permitted - ondansetron 4 mg Oral tablet,disintegrating - take 1 tablet by ORAL route every 8 hours As needed; 15 tablet; Refills: 0, rn Product Selection Permitted Signatures: Dispatcher [employer] EDMS Benito Knutson MD MD rn Wood, Tiffany tw5 Calvin Guerrero RN RN as6 Urban Zaldivar ab2 Corrections: (The following items were deleted from the chart) 19:56 19:41 Constitutional: This is a well developed, well nourished patient who is awake, rn alert, and in no acute distress. Head/Face: Normocephalic, atraumatic. Eyes: Periorbital areas with no swelling, redness, or edema. Cardiovascular: Regular rate and rhythm. No pulse deficits. Respiratory: No increased work of breathing, no retractions or nasal flaring. Abdomen/GI: Soft, mild epigastric tenderness, negative rebound, negative Santiago Skin: Warm, dry MS/ Extremity: Pulses equal, no cyanosis. Neuro: Awake and alert, GCS 15 rn
[2021-06-06 00:16] VITALS: TEMP 98.1
[2021-06-06 00:25] VITALS: BP 95/64; O2SAT 98
--- NOTE | 2021-06-06 13:04 | EKG ---
Test Date: 2021-06-05 Test Time: 19:41:06 Privacy Manager: MEASUREMENT RESULTS: Intervals: Rate: 102 TX: 180 QRSD: 94 QT: 356 QTc: 463 [place]: P: 52 TX: 180 QRS: -57 T: 62 INTERPRETIVE STATEMENTS: Sinus tachycardia with fusion complexes Incomplete right bundle branch block Left anterior fascicular block Abnormal ECG Compared to ECG 05/28/2020 21:22:28 Fusion complex(es) now present Left anterior fascicular block now present Electronically Signed On 06-06-21 13:02:49 CADD DRAFTER by Jevon Espinoza
--- NOTE | 2021-06-06 13:04 | EKG ---
Test Date: 2021-06-05 Test Time: 19:41:30 Specialty Finishing Utility Person: MEASUREMENT RESULTS: Intervals: Rate: 102 SD: 182 QRSD: 94 QT: 348 QTc: 453 [place]: P: 50 SD: 182 QRS: -58 T: 60 INTERPRETIVE STATEMENTS: Sinus tachycardia Incomplete right bundle branch block Left anterior fascicular block Abnormal ECG Compared to ECG 06/05/2021 19:41:06 Fusion complex(es) no longer present Electronically Signed On 06-06-21 13:02:48 STUDIO SALES ASSOCIATE by Jevon Espinoza
== END 2021-06-05 23:47 | disposition home or self-care (01) ==
LOC: ER 18:26
DX: A09 Infectious gastroenteritis and colitis, unspecified (principal); E86.0 Dehydration; E11.9 Type 2 diabetes mellitus without complications; I10 Essential (primary) hypertension; Z20.822 Contact with and (suspected) exposure to COVID-19
CPT/HCPCS: 85025; 80048; 36415; 82565; 80076; 84484; 83690; 74177; U0003; Q9967; J1200; J7030 ×2; J2930; J0744; 93005

== ENCOUNTER 2022-04-19 08:58 | Day surgery (SDC) | payer OTHER ==
[2022-04-19] MEDS ORDERED: NA CHLORIDE 0.9% 1,000 ML ONE (09:27)
[2022-04-19] MEDS ORDERED: propofoL 200 MG/20 ML VIAL IV ONE (11:45)
[2022-04-19] MEDS ORDERED: LIDOCAINE 1% MPF 30 ML VIAL ONE (11:46)
[2022-04-19 13:11] VITALS: BP 107/72; TEMP 97.8; O2SAT 97
--- NOTE | 2022-04-22 15:07 | EKG ---
Test Date: 2022-04-19 Test Time: 09:15:42 Escalator Operator: MAN MEASUREMENT RESULTS: Intervals: Rate: 73 HI: 194 QRSD: 100 QT: 390 QTc: 429 [place]: P: 44 HI: 194 QRS: -21 T: 31 INTERPRETIVE STATEMENTS: Normal sinus rhythm Incomplete right bundle branch block Borderline ECG Compared to ECG 06/05/2021 19:41:30 Sinus tachycardia no longer present Left anterior fascicular block no longer present Electronically Signed On 04-22-22 14:59:17 CHANNELING MACHINE OPERATOR by Rachid Sanchez
== END 2022-04-19 12:53 | disposition home or self-care (01) ==
LOC: OR 08:58
PROVIDERS: ATTEND Surgery
PROC: 0DB78ZX Excision of Stomach, Pylorus, Via Natural or Artificial Opening Endoscopic, Diagnostic (ICD-10-PCS; 2022-04-19)
PROC: 0DB68ZX Excision of Stomach, Via Natural or Artificial Opening Endoscopic, Diagnostic (ICD-10-PCS; 2022-04-19)
PROC: 0DB48ZX Excision of Esophagogastric Junction, Via Natural or Artificial Opening Endoscopic, Diagnostic (ICD-10-PCS; 2022-04-19)
PROC: 0DB98ZX Excision of Duodenum, Via Natural or Artificial Opening Endoscopic, Diagnostic (ICD-10-PCS; principal; 2022-04-19 12:00)
DX: R10.9 Unspecified abdominal pain (principal); R11.0 Nausea; E11.9 Type 2 diabetes mellitus without complications; I10 Essential (primary) hypertension; K29.50 Unspecified chronic gastritis without bleeding; K21.00 Gastro-esophageal reflux disease with esophagitis, without bleeding
CPT/HCPCS: 93005; 88312; 82947 ×2; 88305; 43239; J2704; J2001; J7030

== ENCOUNTER 2023-04-20 11:10 | Emergency (ER) | payer OTHER ==
[2023-04-20 12:29] LABS: Absolute Lymphocytes (CBC) 1.5 K/uL (0.7-4.9); Hematocrit 43.8 % (39.6-49.0); Lymphocytes % 19.6 % (15.3-44.8); MCV 86.3 fL (80-100); MPV 7.6 fL (7.6-11.3); Platelets 238 thou/uL (152-406); RBC Red Blood Cell Count 5.07 M/uL (4.33-5.43)
[2023-04-20] MEDS ORDERED: NA CHLORIDE 0.9% 1,000 ML ONE (12:40)
[2023-04-20 12:52] LABS: Albumin 3.6 g/dL (3.4-5.0); Bilirubin Direct 0.1 mg/dL (0-0.2); Bilirubin Indirect, Calculated 0.4 mg/dL (0.2-0.8); Bilirubin Total 0.5 mg/dL (0.2-1.0); Magnesium 1.8 mg/dL (1.6-2.4); Phosphorus 3.3 mg/dL (2.5-4.9); Potassium 4.6 mEq/L (3.5-5.1)
[2023-04-20 13:04] LABS: Specific Gravity > 1.030 (1.005-1.030); Urine Bacteria None Seen /HPF (<20); Urine Bilirubin NEGATIVE (Negative); Urine Blood Negative (Negative); Urine Clarity Clear (Clear); Urine Color Light-Yellow (Yellow); Urine Glucose 4+ (Over) (Negative); Urine Protein NEGATIVE (Negative); Urine RBC <5 /HPF (None Seen); Urine Urobilinogen Normal (Normal)
[2023-04-20 13:27] LABS: BETA HYDROXYBUTYRATE 0.26 mmol/L (0.02-0.27)
[2023-04-20] MEDS ORDERED: INSULIN REGULAR (HUMAN) 100 UNIT/ML ONE (14:14)
--- NOTE | 2023-04-20 14:53 | ER ---
Nurse's Notes [facility] Name: Georgi Goldberg Age: 67 yrs Sex: Male : 1955 Arrival Date: 04/20/2023 Time: 11:10 Bed 19 Private MD: Diagnosis: Type 2 diabetes mellitus with hyperglycemia Presentation: 04/20 11:32 Chief complaint: Patient states: High blood sugar "450". States he takes metformin and nj1 glimepiride for his diabetes. Was not feeling good this morning that why he decided to check his sugar. Coronavirus screen: Vaccine status: Patient reports receiving the 2nd dose of the covid vaccine. Ebola Screen: No symptoms or risks identified at this time. Initial Sepsis Screen: Does the patient meet any 2 criteria? HR > 90 bpm. No. Patient's initial sepsis screen is negative. Does the patient have a suspected source of infection? No. Patient's initial sepsis screen is negative. Risk Assessment: Do you want to hurt yourself or someone else? Patient reports no desire to harm self or others. Onset of symptoms was April 20, 2023. 11:32 Method Of Arrival: Ambulatory [facility] 11:32 Acuity: NESSA 3 nj Historical: - Allergies: 11:35 PENICILLINS; nj1 - Home Meds: 12:32 Glimepiride Oral 1 tab 2 times per day for type 2 diabetes mellitus [Active]; mb9 lisinopril 20 mg oral tablet once [Active]; metformin 1,000 mg oral tablet 2 times per day [Active]; - PMHx: 11:35 Diabetes - NIDDM; Hypertension; nj1 - PSHx: 11:35 None; nj1 - Immunization history:: Client reports receiving the 2nd dose of the Covid vaccine. - Social history:: Smoking status: Patient denies any tobacco usage or history of. Screenin:32 [facility] ED Fall Risk Assessment (Adult) History of falling in the last 3 months, mb9 including since admission No falls in past 3 months (0 pts) Confusion or Disorientation No (0 pts) Intoxicated or Sedated No (0 pts) Impaired Gait No (0 pts) Mobility Assist Device Used No (0 pt) Altered Elimination No (0 pt) Score/Fall Risk Level 0 - 2 = Low Risk Oriented to surroundings, Maintained a safe environment, Educated pt \\T\\ family on fall prevention, incl call for assistance when getting out of bed. Abuse screen: Denies threats or abuse. Nutritional screening: No deficits noted. Tuberculosis screening: No symptoms or risk factors identified. Assessment: 12:31 General: Appears in no apparent distress. Behavior is calm, cooperative, appropriate mb9 for age. Pain: Denies pain. Neuro: Reich Agitation-Sedation Scale (RASS): 0 - Alert and Calm Level of Consciousness is awake, alert, obeys commands, Oriented to person, place, time, situation, Appropriate for age. Cardiovascular: Heart tones S1 S2 present Patient's skin is warm and dry. Respiratory: Airway is patent Respiratory effort is even, unlabored, Respiratory pattern is regular, symmetrical. GI: Abdomen is round obese, Bowel sounds present X 4 quads. Abd is soft and non tender X 4 quads. : No signs and/or symptoms were reported regarding the genitourinary system. EENT: No signs and/or symptoms were reported regarding the EENT system. Derm: Skin is pink, warm \\T\\ dry. Musculoskeletal: Range of motion: intact in all extremities. 14:07 Reassessment: No changes from previously documented assessment. Patient and/or family mb9 updated on plan of care and expected duration. Pain level reassessed. Patient is alert, oriented x 3, equal unlabored respirations, skin warm/dry/pink. 14:58 Reassessment: Patient and/or family updated on plan of care and expected duration. Pain mb9 level reassessed. Patient is alert, oriented x 3, equal unlabored respirations, skin warm/dry/pink. Patient denies pain at this time. Patient states feeling better. Vital Signs: 11:32 BP 124 / 82; Pulse 97; Resp 18; Temp 98.2(O); Pulse Ox 100% ; Weight 93.89 kg; Height 5 [facility] ft. 9 in. ; 14:06 BP 124 / 75; Pulse 89; Resp 16; Pulse Ox 100% on R/A; mb9 11:32 Body Mass Index 30.57 (93.89 kg, 175.26 cm) [facility] ED Course: 11:13 Patient arrived in ED. mg5 11:16 Rica Dunn PA-C is PHCP. sb4 11:16 Jack Simons DO is Attending Physician. sb4 11:35 Triage completed. nj1 11:36 Arm band placed on left wrist. nj1 12:23 Hannah Panda, RN is Primary Nurse. mb9 12:24 UAM Sent. mb9 12:32 Placed in gown. Bed in low position. Call light in reach. Side rails up X 1. Client mb9 placed on continuous cardiac and pulse oximetry monitoring. NIBP monitoring applied. recordings librarian on. 12:32 Inserted saline lock: 22 gauge in right antecubital area, using aseptic technique. mb9 Blood collected. 14:53 Alexandru Orta MD is Referral Physician. sb4 14:58 No provider procedures requiring assistance completed. IV discontinued, intact, mb9 bleeding controlled, No redness/swelling at site. Pressure dressing applied. Administered Medications: 12:30 Drug: NS 0.9% IV 1000 ml IV at 1000 ml once Route: IV; Rate: 1000 ml; Site: right mb9 antecubital; 14:05 Drug: Insulin Regular Human Sub-Q 5 units Sub-Q once {Co-Signature: dae (Sanam Gray RN).} Route: Sub-Q; Site: right upper arm; 14:06 Drug: Insulin Regular Human IVP 5 units IVP once {Co-Signature: dae (Sanam Gray RN).} mb9 Route: IVP; Site: right antecubital; Medication: 12:32 VIS not applicable for this client. mb9 Outcome: 14:53 Discharge ordered by MD. sb4 14:59 Discharged to home ambulatory, mb9 14:59 Condition: stable 14:59 Discharge instructions given to patient, family, Instructed on discharge instructions, follow up and referral plans. Demonstrated understanding of instructions, follow-up care, 14:59 Patient left the ED. mb9 Signatures: Rica Dunn, PADanieC PADanieC sb4 Hannah Panda, RN RN mb9 Anita Chase RN RN nj1 Christelle Dawson mg5 Sanam Gray RN jl7 Corrections: (The following items were deleted from the chart) 11:35 11:32 Coronavirus screen: Vaccine status: Patient reports receiving the 2nd dose of the nj1 covid vaccine. nj1 11:36 11:32 Chief complaint: Patient states: High blood sugar "450". States he takes nj1 metformin and glipizide for his diabetes. Was not feeling good this morning that why he decided to check his sugar. nj1
--- NOTE | 2023-04-20 14:53 | EDPHYS ---
Physician Documentation [facility] Name: Georgi Goldberg Age: 67 yrs Sex: Male : 1955 Arrival Date: 04/20/2023 Time: 11:10 Bed 19 Private MD: ED Physician Jack Simons HPI: 04/20 18:00 This 67 yrs old Male presents to ER via Ambulatory with complaints of High Blood Sugar. sb4 18:00 Patient states that he was feeling "off "this morning so he decided to check his blood sb4 sugar and noted it to be 450. He does have a history of type 2 diabetes in which she takes metformin, glipizide, and some naturopathic supplements. He does endorse drinking Dr. Pozo regularly. He had not checked his blood sugar prior to today. He denies any nausea, vomiting, lightheadedness, chest pain, diaphoresis. Historical: - Allergies: 11:35 PENICILLINS; nj1 - Home Meds: 12:32 Glimepiride Oral 1 tab 2 times per day for type 2 diabetes mellitus [Active]; mb9 lisinopril 20 mg oral tablet once [Active]; metformin 1,000 mg oral tablet 2 times per day [Active]; - PMHx: 11:35 Diabetes - NIDDM; Hypertension; nj1 - PSHx: 11:35 None; nj1 - Immunization history:: Client reports receiving the 2nd dose of the Covid vaccine. - Social history:: Smoking status: Patient denies any tobacco usage or history of. ROS: 18:00 Constitutional: Negative for fever, chills, and weight loss, sb4 18:00 Endocrine: Positive for Hyperglycemia, 18:00 All other systems are negative, Exam: 18:00 Constitutional: This is a well developed, well nourished patient who is awake, alert, sb4 and in no acute distress. Head/Face: Normocephalic, atraumatic. Eyes: Extra-ocular motions intact. Periorbital areas with no swelling, redness, or edema. ENT: Mucous membranes moist. Cardiovascular: Regular rate and rhythm with a normal S1 and S2. Respiratory: Lungs have equal breath sounds bilaterally, clear to auscultation and percussion. No rales, rhonchi or wheezes noted. No increased work of breathing, no retractions or nasal flaring. Abdomen/GI: Soft, non-tender, no distension. Skin: Warm, dry with normal turgor. Normal color with no rashes, no lesions, and no evidence of cellulitis. MS/ Extremity: Pulses equal, no cyanosis. Neurovascular intact. Full, normal range of motion. Neuro: Awake and alert, GCS 15, oriented to person, place, time, and situation. Motor strength 5/5 in all extremities. Sensory grossly intact. Vital Signs: 11:32 BP 124 / 82; Pulse 97; Resp 18; Temp 98.2(O); Pulse Ox 100% ; Weight 93.89 kg; Height 5 nj1 ft. 9 in. ; 14:06 BP 124 / 75; Pulse 89; Resp 16; Pulse Ox 100% on R/A; mb9 11:32 Body Mass Index 30.57 (93.89 kg, 175.26 cm) nj1 MDM: 11:41 Patient medically screened. sb4 18:00 Differential diagnosis: DKA, hyperglycemia. Data reviewed: vital signs, nurses notes, sb4 lab test result(s), and as a result, I will discharge patient. Care significantly affected by the following chronic conditions: Diabetes, Hypertension. Counseling: I had a detailed discussion with the patient and/or guardian regarding the historical points, exam findings, and any diagnostic results supporting the discharge/admit diagnosis, lab results, the need for outpatient follow up, for definitive care, to return to the emergency department if symptoms worsen or persist or if there are any questions or concerns that arise at home. ED course: Instructed patient to monitor blood sugar closely and to stop drinking Dr. Pozo. Stated that his diabetes medications may need to be adjusted given his elevated blood sugar readings. He understand. 04/20 11:42 Order name: Basic Metabolic Panel; Complete Time: 13:27 sb4 04/20 11:42 Order name: CBC with Diff; Complete Time: 12:34 sb4 04/20 11:42 Order name: Hepatic Function; Complete Time: 13:27 sb4 04/20 11:42 Order name: Lipase; Complete Time: 13:27 sb4 04/20 11:42 Order name: Magnesium; Complete Time: 13:27 sb4 04/20 11:42 Order name: Phosphorus; Complete Time: 13:27 sb4 04/20 11:42 Order name: UAM; Complete Time: 13:07 sb4 04/20 11:51 Order name: Glucose, Ancillary Testing; Complete Time: 11:53 EDMS 04/20 13:19 Order name: BETA HYDROXYBUTYRATE; Complete Time: 13:27 EDMS 04/20 14:51 Order name: Glucose, Ancillary Testing; Complete Time: 14:53 EDMS 04/20 11:42 Order name: Cardiac monitoring; Complete Time: 12:23 sb4 04/20 11:42 Order name: IV Saline Lock; Complete Time: 12:23 sb4 04/20 11:42 Order name: NPO; Complete Time: 12:23 sb4 04/20 11:42 Order name: O2 Per Protocol; Complete Time: 12:23 sb4 04/20 11:42 Order name: O2 Sat Monitoring; Complete Time: 12:23 sb4 04/20 13:51 Order name: PO challenge; Complete Time: 14:05 sb4 04/20 13:51 Order name: Accucheck; Complete Time: 14:37 sb4 Administered Medications: 12:30 Drug: NS 0.9% IV 1000 ml IV at 1000 ml once Route: IV; Rate: 1000 ml; Site: right mb9 antecubital; 14:05 Drug: Insulin Regular Human Sub-Q 5 units Sub-Q once {Co-Signature: dae (Sanam Gray9 RN).} Route: Sub-Q; Site: right upper arm; 14:06 Drug: Insulin Regular Human IVP 5 units IVP once {Co-Signature: dae (Sanam Gray RN).} mb9 Route: IVP; Site: right antecubital; Disposition: 19:54 I was immediately available on-site in the Emergency Department for consultation in the ms3 care of the patient. Disposition Summary: 04/20/23 14:53 Discharge Ordered Notes: Location: Home sb4 Problem: new sb4 Symptoms: have improved sb4 Condition: Stable sb4 Diagnosis - Type 2 diabetes mellitus with hyperglycemia sb4 Followup: sb4 - With: Alexandru Orta MD - When: 2 - 3 days - Reason: Recheck today's complaints, Continuance of care, Re-evaluation by your physician Discharge Instructions: - Discharge Summary Sheet sb4 - Hyperglycemia, [id number] sb4 Forms: - Medication Reconciliation Form sb4 - Thank You Letter sb4 - Antibiotic Education sb4 - Prescription Opioid Use sb4 - Patient Portal Instructions sb4 - Leadership Thank You Letter sb4 Signatures: Dispatcher [employer] EDJack Hernandez, DO RAZA ms3 Rica Dunn, XIOMY STAUFFER sb4 Hannah Panda, RN RN mb9 Anita Chase RN RN nj1 Sanam Gray RN jl7 Corrections: (The following items were deleted from the chart) 14:59 11:42 BETA HYDROXYBUTYRATE+C.LAB.BRZ ordered. sb4 mb9
[2023-04-20 15:08] VITALS: BP 124/75; TEMP 98.2; O2SAT 100
== END 2023-04-20 14:59 | disposition home or self-care (01) ==
LOC: ER 11:10
DX: E11.65 Type 2 diabetes mellitus with hyperglycemia (principal); I10 Essential (primary) hypertension; Z88.0 Allergy status to penicillin
CPT/HCPCS: 85025; 81001; 80048; 36415; 83735; 84100; 82947 ×2; 80076; 83690; 82010; 96372; 96374; 99285; J1815; J7030

== ENCOUNTER 2023-08-15 07:03 | Day surgery (SDC) | payer OTHER ==
[2023-08-13 16:04] LABS: Absolute Basophils 0.1 K/uL (0-0.5); Absolute Eosinophils 0.3 K/uL (0-0.5); Absolute Lymphocytes (CBC) 1.8 K/uL (0.7-4.9); Absolute Monocytes 0.6 K/uL (0.1-1.3); Basophils % 0.8 % (0-1.3); Eosinophils % 3.8 % (0-4.4); Hemoglobin 14.8 g/dL (13.6-17.9); Lymphocytes % 26.6 % (15.3-44.8); MCH 30.2 pg (27.0-35.0); MCHC 35.1 g/dL (32.0-36.0); MCV 85.9 fL (80-100); MPV 7.5 fL (7.6-11.3); Monocytes % 8.8 % (3.3-12.3); Platelets 263 thou/uL (152-406); RBC Red Blood Cell Count 4.89 M/uL (4.33-5.43); Red Cell Distribution Width 13.4 % (12.1-15.2)
[2023-08-13 16:16] LABS: Anion Gap 8.9 mEq/L (5.0-15.0); Potassium 3.9 mEq/L (3.5-5.1)
[2023-08-15] MEDS ORDERED: LIDOCAINE 1% MPF 5 ML VIAL ONE (07:07)
[2023-08-15] MEDS ORDERED: propofoL 200 MG/20 ML VIAL IV ONE (07:07)
[2023-08-15] MEDS: NA CHLORIDE 0.9% 1,000 ML ONE (07:30)
[2023-08-15] MEDS ORDERED: INSULIN REGULAR (HUMAN) 100 UNIT/ML ONE (07:41)
[2023-08-15 10:01] VITALS: BP 103/52; TEMP 96.6; O2SAT 96
--- NOTE | 2023-08-18 12:52 | EKG ---
Test Date: 2023-08-15 Test Time: 07:21:10 Chamber Worker: VITA MEASUREMENT RESULTS: Intervals: Rate: 80 MS: 198 QRSD: 100 QT: 384 QTc: 442 [place]: P: 56 MS: 198 QRS: -24 T: 45 INTERPRETIVE STATEMENTS: Normal sinus rhythm Normal ECG Compared to ECG 08/07/2022 13:42:57 Incomplete right bundle-branch block no longer present Electronically Signed On 08-18-23 12:43:38 CDT by Rachid Sanchez
== END 2023-08-15 09:26 | disposition home or self-care (01) ==
LOC: OR 07:03
PROVIDERS: ATTEND Surgery
PROC: 0DB78ZX Excision of Stomach, Pylorus, Via Natural or Artificial Opening Endoscopic, Diagnostic (ICD-10-PCS; 2023-08-15)
PROC: 0DB48ZX Excision of Esophagogastric Junction, Via Natural or Artificial Opening Endoscopic, Diagnostic (ICD-10-PCS; principal; 2023-08-15 08:00)
DX: K31.A0 Gastric intestinal metaplasia, unspecified (principal); K22.719 Barrett's esophagus with dysplasia, unspecified; R10.9 Unspecified abdominal pain; I10 Essential (primary) hypertension; E11.9 Type 2 diabetes mellitus without complications; K29.50 Unspecified chronic gastritis without bleeding; K21.00 Gastro-esophageal reflux disease with esophagitis, without bleeding; K31.7 Polyp of stomach and duodenum; Z88.0 Allergy status to penicillin
CPT/HCPCS: 93005; 85025; 80048; 36415; 88312; 88313; 82947 ×2; 88305; 43251; 43239; J1815; J2704; J2001; J7030

== ENCOUNTER 2024-05-17 10:59 | Day surgery (SDC) | payer OTHER ==
[2024-05-17 11:37] LABS: Absolute Eosinophils 0.3 K/uL (0-0.5); Absolute Lymphocytes (CBC) 1.6 K/uL (0.7-4.9); Absolute Monocytes 0.6 K/uL (0.1-1.3); Absolute Neutrophil 3.5 K/uL (1.8-8.0); Basophils % 0.6 % (0-1.3); Eosinophils % 4.5 % (0-4.4); Hematocrit 44.1 % (39.6-49.0); Hemoglobin 14.8 g/dL (13.6-17.9); Lymphocytes % 26.6 % (15.3-44.8); MCHC 33.6 g/dL (32.0-36.0); MCV 86.4 fL (80-100); MPV 7.1 fL (7.6-11.3); Monocytes % 9.5 % (3.3-12.3); Neutrophils % 58.8 % (41.7-73.7); Nucleated Red Blood Cells % 0.1 % (0-0); Platelets 289 thou/uL (152-406); Red Cell Distribution Width 13.7 % (12.1-15.2)
[2024-05-17] MEDS: NA CHLORIDE 0.9% 1,000 ML ONE (12:03)
[2024-05-17] MEDS ORDERED: propofoL 200 MG/20 ML VIAL IV ONE ×2 (12:23→12:24)
[2024-05-17] MEDS ORDERED: LIDOCAINE 1% MPF 2 ML AMPULE ONE (12:24)
[2024-05-17 14:51] VITALS: BP 93/57; TEMP 98.3; O2SAT 94
== END 2024-05-17 13:50 | disposition home or self-care (01) ==
LOC: OR 10:59
PROVIDERS: ATTEND Surgery
PROC: 0DB78ZX Excision of Stomach, Pylorus, Via Natural or Artificial Opening Endoscopic, Diagnostic (ICD-10-PCS; principal; 2024-05-17 12:45)
DX: K31.A0 Gastric intestinal metaplasia, unspecified (principal); R11.0 Nausea; R10.9 Unspecified abdominal pain; K31.7 Polyp of stomach and duodenum; K29.50 Unspecified chronic gastritis without bleeding
CPT/HCPCS: 85025; 80048; 36415; 88312; 88305; 43239; J2704; J7030

== ENCOUNTER 2024-06-19 19:50 | Emergency (ER) | payer OTHER ==
[2024-06-19] MEDS ORDERED: NA CHLORIDE 0.9% 1,000 ML ONE (20:17)
[2024-06-19] MEDS ORDERED: APIXABAN 5 MG TABLET ONE (20:17)
[2024-06-19 20:32] LABS: Absolute Basophils 0.1 K/uL (0-0.5); Absolute Eosinophils 0.2 K/uL (0-0.5); Absolute Lymphocytes (CBC) 1.2 K/uL (0.7-4.9); Absolute Monocytes 0.7 K/uL (0.1-1.3); Absolute Neutrophil 5.9 K/uL (1.8-8.0); Basophils % 0.8 % (0-1.3); Eosinophils % 1.9 % (0-4.4); Hemoglobin 12.6 g/dL (13.6-17.9); Lymphocytes % 15.5 % (15.3-44.8); MCH 29.7 pg (27.0-35.0); MCHC 34.9 g/dL (32.0-36.0); MPV 7.4 fL (7.6-11.3); Monocytes % 8.6 % (3.3-12.3); Neutrophils % 73.2 % (41.7-73.7); Nucleated Red Blood Cells % 0.1 % (0-0); Platelets 288 thou/uL (152-406); RBC Red Blood Cell Count 4.24 M/uL (4.33-5.43); Red Cell Distribution Width 14.3 % (12.1-15.2)
[2024-06-19 20:43] LABS: PT Prothrombin Time 13.5 SECONDS (9.4-12.5); Protime INR 1.29
[2024-06-19 20:52] LABS: Albumin/Globulin Ratio 0.8 (1.1-1.8); Anion Gap 10.3 mEq/L (5.0-15.0); Bilirubin Direct 0.2 mg/dL (0-0.2); Bilirubin Indirect, Calculated 0.5 mg/dL (0.2-0.8); Bilirubin Total 0.7 mg/dL (0.2-1.0); Globulin 3.9 g/dL (2.3-3.5); Magnesium 1.8 mg/dL (1.6-2.4); Potassium 3.3 mEq/L (3.5-5.1); Protein, Total 6.9 g/dL (6.4-8.2); Troponin High Sensitivity 7.3 pg/mL (<58.9)
[2024-06-19] MEDS ORDERED: POTASSIUM 25 MEQ EFFERV TAB ONE (21:01)
--- NOTE | 2024-06-19 21:17 | RAD REPORT ---
EXAMINATION: US LOWER EXTREMITY VENOUS DOPPLER BILATERAL CLINICAL INDICATION: Male, 68 years old.PAIN TECHNIQUE: Complete bilateral duplex sonography of the lower extremity veins was performed. The exami nation included compression for vein patency, color Doppler imaging and flow augmentation in response to distal compression of the distal external iliac, common femoral, femoral, popliteal, donna emil, tibial and great saphenous veins. [id number]. COMPARISON: No prior exams FINDINGS: Duplex sonography imaging demonstrates all deep examined to be fully compressible with spontaneous, p hasic and augmented flow bilaterally. IMPRESSION: No evidence of deep venous thrombosis seen in either lower extremity.
--- NOTE | 2024-06-19 21:17 | RAD REPORT ---
EXAM: Chest Single View HISTORY: DYSPNEA COMPARISON: None. FINDINGS: LUNGS/PLEURA: The lungs are clear. No pleural effusions or pneumothorax. No pulmonary edema. MEDIASTINUM: The mediastinal silhouette is within normal limits. CARDIAC: The cardiac silhouette is within normal limits. UPPER ABDOMEN: No significant abnormality. BONES: No acute abnormality. LINES/TUBES/OTHER: N/A IMPRESSION: No evidence of acute cardiopulmonary disease.
--- NOTE | 2024-06-19 21:44 | RAD REPORT ---
EXAMINATION: CTA CHEST PE CLINICAL INDICATION: Male, 68 years old. SOB TECHNIQUE: This examination was performed according to an angiographic protocol with 3D post-processi ng. This involves 3D reconstructions, MIPs, volume rendered images and/or shaded surface rendering. One or more of the following dose reduction techniques were used: Automated exposure control, adjustm ent of the mA and/or kV according to patient size, and/or iterative reconstruction. Unless otherwise specified, incidental findings do not require dedicated imaging follow-up. [id number]. COMPARISON: Same day chest radiograph. FINDINGS: LOWER NECK: Visualized thyroid gland and soft tissues are normal. LUNGS AND AIRWAYS: Airways are clear. No evidence of airspace or interstitial process.Rounded dense r ight upper lobe nodule measuring 4 mm is benign imaging features and does not require follow-up. PLEURA: No pleural effusion. No pneumothorax. Hemidiaphragms are normally positioned. MEDIASTINUM AND LYMPH NODES: No mediastinal mass or fluid collection. Normal size mediastinal, hilar, and axillary lymph nodes. Mild diffuse esophageal wall thickening. THORACIC AORTA: No thoracic aortic aneurysm. PULMONARY ARTERIES: Caliber is within normal limits. No central pulmonary embolus identified. The seg mental and subsegmental pulmonary arteries cannot be adequately assessed due to motion and/or poor contrast opacifications. HEART: Normal heart size. No coronary calcifications.No significant pericardial effusion. Mitral lizbeth lar calcifications. OSSEOUS STRUCTURES AND CHEST WALL: UPPER ABDOMEN: No acute abnormalities. IMPRESSION: No central pulmonary embolus. Suboptimal contrast opacification of pulmonary arteries. Diffuse esopha geal wall thickening could reflect esophagitis. No acute process otherwise identified in the chest.
--- NOTE | 2024-06-19 22:06 | EDPHYS ---
Physician Documentation [facility] Name: Georgi Goldberg Age: 68 yrs Sex: Male : 1955 Arrival Date: 06/19/2024 Time: 19:50 Bed 14 Private MD: ED Physician Eder Hastings HPI: 06/19 20:06 This 68 yrs old Male presents to ER via Unassigned with complaints of beatrice Shortness Of Breath, Post Surgical Pain, Sent by [facility] for c/o pumonary embolism. 20:06 The patient has shortness of breath at rest, with light activity. Onset: The beatrice symptoms/episode began/occurred 3 day(s) ago. Duration: The symptoms are continuous, and are steadily getting worse. The patient's shortness of breath has no apparent modifying factors. Associated signs and symptoms: The patient has no apparent associated signs or symptoms. Severity of symptoms: At their worst the symptoms were moderate in the emergency department the symptoms are unchanged. The patient has not experienced similar symptoms in the past. Historical: - Allergies: 20:08 PENICILLINS; ha1 - Home Meds: 20:08 metformin 1 Oral tablet 2 times per day [Active]; lisinopril 20 mg Oral tablet once ha1 [Active]; Plavix Oral [Active]; Glimepiride Oral 1 tab 2 times per day for Type 2 Diabetes Mellitus [Active]; - PMHx: 20:08 Diabetes - NIDDM; Hypertension; ha1 - Immunization history:: Adult Immunizations up to date. - Infectious Disease History:: Denies. - Family history:: not pertinent. - Social history:: Smoking status: Patient denies any tobacco usage or history of. ROS: 20:06 Constitutional: Negative for fever, chills, and weight loss, Eyes: Negative for injury, beatrice pain, redness, and discharge, ENT: Negative for injury, pain, and discharge, Neck: Negative for injury, pain, and swelling, Cardiovascular: Negative for chest pain, palpitations, and edema, Abdomen/GI: Negative for abdominal pain, nausea, vomiting, diarrhea, and constipation, Back: Negative for injury and pain, : Negative for injury, bleeding, discharge, and swelling, MS/Extremity: Negative for injury and deformity, Skin: Negative for injury, rash, and discoloration, Neuro: Negative for headache, weakness, numbness, tingling, and seizure, Psych: Negative for depression, anxiety, suicide ideation, homicidal ideation, and hallucinations, Allergy/Immunology: Negative for hives, rash, and allergies, Endocrine: Negative for neck swelling, polydipsia, polyuria, polyphagia, and marked weight changes, Hematologic/Lymphatic: Negative for swollen nodes, abnormal bleeding, and unusual bruising, 20:06 Respiratory: Positive for shortness of breath, Exam: 20:06 Constitutional: This is a well developed, well nourished patient who is awake, alert, beatrice and in no acute distress. Head/Face: Normocephalic, atraumatic. Eyes: Pupils equal round and reactive to light, extra-ocular motions intact. Lids and lashes normal. Conjunctiva and sclera are non-icteric and not injected. Cornea within normal limits. Periorbital areas with no swelling, redness, or edema. ENT: Nares patent. No nasal discharge, no septal abnormalities noted. Tympanic membranes are normal and external auditory canals are clear. Oropharynx with no redness, swelling, or masses, exudates, or evidence of obstruction, uvula midline. Mucous membranes moist. Neck: Trachea midline, no thyromegaly or masses palpated, and no cervical lymphadenopathy. Supple, full range of motion without nuchal rigidity, or vertebral point tenderness. No Meningismus. Chest/axilla: Normal chest wall appearance and motion. Nontender with no deformity. No lesions are appreciated. Cardiovascular: Regular rate and rhythm with a normal S1 and S2. No gallops, murmurs, or rubs. Normal PMI, no JVD. No pulse deficits. Respiratory: Lungs have equal breath sounds bilaterally, clear to auscultation and percussion. No rales, rhonchi or wheezes noted. No increased work of breathing, no retractions or nasal flaring. Abdomen/GI: Soft, non-tender, with normal bowel sounds. No distension or tympany. No guarding or rebound. No evidence of tenderness throughout. Back: No spinal tenderness. No costovertebral tenderness. Full range of motion. Male : Normal genitalia with no discharge or lesions. Skin: Warm, dry with normal turgor. Normal color with no rashes, no lesions, and no evidence of cellulitis. MS/ Extremity: Pulses equal, no cyanosis. Neurovascular intact. Full, normal range of motion., bilateral aka Neuro: Awake and alert, GCS 15, oriented to person, place, time, and situation. Cranial nerves II-XII grossly intact. Motor strength 5/5 in all extremities. Sensory grossly intact. Cerebellar exam normal. Normal gait. Psych: Awake, alert, with orientation to person, place and time. Behavior, mood, and affect are within normal limits. 20:06 Musculoskeletal/extremity: DVT Exam: No signs of deep vein thrombosis. no pain, no swelling, no tenderness, negative Homans' sign noted on exam, no appreciated bluish discoloration, no erythema, no increased warmth, 20:11 ECG was reviewed by the Attending Physician. [facility] Vital Signs: 19:55 BP 122 / 97; Pulse 97; Resp 17 S; Temp 98.2; Pulse Ox 100% on R/A; Weight 97.52 kg; ha1 Height 5 ft. 9 in. ; 20:34 BP 133 / 81; Pulse 83; Resp 18; Pulse Ox 100% on R/A; Pain 0/10; rg5 21:23 BP 139 / 80; Pulse 95; Resp 18; Pulse Ox 100% on R/A; Pain 0/10; rg5 21:30 BP 142 / 78; Pulse 80; Resp 18; Pulse Ox 87% on R/A; rg5 22:15 BP 135 / 80; Pulse 90; Resp 18; Pulse Ox 99% on R/A; Pain 0/10; rg5 19:55 Body Mass Index 31.75 (97.52 kg, 175.26 cm) ha1 20:34 Pain Scale: Adult rg5 21:23 Pain Scale: Adult rg5 22:15 Pain Scale: Adult rg5 MDM: 19:56 Medical Screening Exam initiated [facility] 20:07 Differential diagnosis: Anemia asthma, Bronchitis CHF exacerbation, Chronic Obstructive beatrice Pulmonary Disease pneumonia, Pneumothorax Psychogenic pulmonary edema, Pulmonary Embolism reactive airway disease, Unstable Angina. Antibiotic administration: Not indicated. Immunization status: Pneumococcal vaccine: within last 5 years. Influenza vaccine: within last 5 years. Data reviewed: vital signs, nurses notes, lab test result(s), EKG, radiologic studies, CT scan, doppler, plain films. Consideration of Admission/Observation Escalation of care including admission/observation considered. I considered the following discharge prescriptions or medication management in the emergency department Medications were administered in the Emergency Department. See MAR. Independent interpretation of the following test(s) in the Emergency Department EKG: See my EKG interpretation above. Test considered but Not performed: Ultrasound no 2 . Historians other than the Patient: Spouse/Significant Other: well informed. 06/19 20:05 Order name: Basic Metabolic Panel; Complete Time: 20:56 [facility] 02 20:05 Order name: CBC with Diff; Complete Time: 20:56 [facility] 06/19 20:05 Order name: LFT's; Complete Time: 20:56 [facility] 06/19 20:05 Order name: Magnesium; Complete Time: 20:56 [facility] 06/19 20:05 Order name: NT PRO-BNP; Complete Time: 20:56 [facility] 06/19 20:05 Order name: PT-INR; Complete Time: 20:56 [facility] 06/19 20:05 Order name: Troponin HS; Complete Time: 20:56 [facility] 06/19 20:05 Order name: XRAY Chest (1 view); Complete Time: 22:03 [facility] 06/19 20:05 Order name: US Extremity Venous W Compression Isidro; Complete Time: 22:03 [facility] 06/19 20:05 Order name: CT Chest For PE Angio; Complete Time: 22:03 [facility] 06/19 20:05 Order name: Cardiac monitoring; Complete Time: 20:11 [facility] 06/19 20:05 Order name: EKG - Nurse/Tech; Complete Time: 20:11 [facility] 06/19 20:05 Order name: IV Saline Lock; Complete Time: 20:12 [facility] 06/19 20:05 Order name: Labs collected and sent; Complete Time: 20:12 [facility] 06/19 20:05 Order name: O2 Per Protocol; Complete Time: 20:11 [facility] 06/19 20:05 Order name: O2 Sat Monitoring; Complete Time: 20:11 [facility] EC:11 Rate is 93 beats/min. Rhythm is regular. QRS [place] is Normal. GA interval is normal. QRS beatrice interval is normal. QT interval is normal. No Q waves. T waves are Normal. No ST changes noted. Clinical impression: Normal ECG and No evidence of ischemia. Interpreted by me. Reviewed by me. Administered Medications: 20:25 Drug: NS 0.9% IV 1000 ml IV at 1000 ml once; to be given as a bolus over 60 minutes rg5 Route: IV; Rate: 1000 ml; Site: right forearm; 21:08 Follow up: IV Status: Completed infusion; IV Intake: 1000ml rg5 20:25 Drug: Eliquis PO 5 mg PO once Route: PO; rg5 20:39 Follow up: Response: No adverse reaction rg5 21:07 Drug: Potassium PO Effervescent Tablet 25 mEq PO once; dissolve in 4 ounces of water or rg5 juice Route: PO; 22:21 Follow up: Response: No adverse reaction rg5 22:30 Drug: Pantoprazole IVP 40 mg IVP once Route: IVP; Site: right forearm; rg5 22:55 Follow up: Response: No adverse reaction rg5 22:30 Drug: GI Cocktail without - (Maalox PO 30 ml, Lidocaine Mucous Membrane 2 % 15 rg5 ml) PO once Route: PO; 22:55 Follow up: Response: No adverse reaction rg5 22:30 Drug: ALPRAZolam PO Tablet 1 mg PO once Route: PO; rg5 22:55 Follow up: Response: No adverse reaction rg5 Disposition Summary: 06/19/24 22:05 Discharge Ordered Notes: Location: Home beatrice Problem: new beatrice Symptoms: have improved beatrice Condition: Stable beatrice Diagnosis - Dyspnea - sp right hip replacement beatrice - Hypokalemia beatrice - retirement (current) use of anticoagulants beatrice - Esophagitis, unspecified beatirce Followup: beatrice - With: Private Physician - When: 2 - 3 days - Reason: Recheck today's complaints, Continuance of care, Re-evaluation by your physician Followup: beatrice - With: Raya Nevarez MD - When: 2 - 3 days - Reason: Recheck today's complaints, Re-evaluation by your physician Discharge Instructions: - Discharge Summary Sheet beatrice - Potassium Content of Foods beatrice - Esophagitis beatrice - Shortness of Breath, Adult beatrice - Shortness of Breath, Adult, [id number] beatrice - Hypokalemia beatrice - Bleeding Precautions When on Anticoagulant Therapy, Adult beatrice Forms: - Medication Reconciliation Form beatrice - Antibiotic Education beatrice - Prescription Opioid Use beatrice - Patient Portal Instructions beatrice - Leadership Thank You Letter beatrice Prescriptions: - Protonix 40 mg Oral Tablet - take 1 tablet ORAL route once daily; 30 tablet; Refills: 0, Product Selection beatrice Permitted Signatures: Dispatcher [employer] Eder Ellsworth MD MD cha Ayala, Heidy, RN RN ha1 Aramis Velez, RN RN rg5 Corrections: (The following items were deleted from the chart) 20:06 20:05 BASIC METABOLIC PANEL+C.LAB.BRZ ordered. EDMS EDMS 20:06 20:05 CBC+H.LAB.BRZ ordered. EDMS EDMS 20:06 20:05 HEPATIC FUNCTION+C.LAB.BRZ ordered. EDMS EDMS 20:06 20:05 MAGNESIUM+C.LAB.BRZ ordered. EDMS EDMS 20:06 20:05 PROBNP+C.LAB.BRZ ordered. EDMS EDMS 20:06 20:05 PROTIME (+INR)+COAG.LAB.BRZ ordered. EDMS EDMS 20:06 20:05 Troponin High Sensitivity+C.LAB.BRZ ordered. EDMS EDMS 20:06 20:06 Chest Single View+RAD.RAD.BRZ ordered. EDMS EDMS 20:06 20:06 Extrem Venous W Compression Isidro+US.RAD.BRZ ordered. EDMS EDMS 20:06 20:06 Chest For PE Angio+CT.RAD.BRZ ordered. EDMS EDMS
--- NOTE | 2024-06-19 22:06 | ER ---
Nurse's Notes [facility] Name: Georgi Goldberg Age: 68 yrs Sex: Male : 1955 Arrival Date: 06/19/2024 Time: 19:50 Bed 14 Private MD: Diagnosis: Dyspnea-sp right hip replacement;Hypokalemia;[employer] (current) use of anticoagulants;Esophagitis, unspecified Presentation: 06/19 19:55 Chief complaint: Patient states: HAD RIGHT HIP SURGERY ON FRIDAY. SHORTNESS OF ha1 BREATH AND CHEST TIGHTNESS TODAY. 19:55 Coronavirus screen: Client denies travel out of the [place] in the last 14 days. Ebola ha1 Screen: No symptoms or risks identified at this time. Initial Sepsis Screen: Does the patient meet any 2 criteria? No. Patient's initial sepsis screen is negative. Does the patient have a suspected source of infection? No. Patient's initial sepsis screen is negative. Risk Assessment: Do you want to hurt yourself or someone else? Patient reports no desire to harm self or others. Onset of symptoms was June 19, 2024. 19:55 Method Of Arrival: Wheelchair ha1 19:55 Acuity: NESSA 2 ha1 Triage Assessment: 20:00 General: Appears uncomfortable, Behavior is cooperative. Pain: Complains of pain in ha1 CHEST PRESSURE Pain currently is 7 out of 10 on a pain scale. Quality of pain is described as pressure. Neuro: Level of Consciousness is awake, alert, obeys commands, Oriented to person, place, time, situation. Cardiovascular: Capillary refill < 3 seconds Patient's skin is warm and dry. Respiratory: Reports shortness of breath at rest Onset: The symptoms/episode began/occurred yesterday, the patient has moderate shortness of breath. GI: No signs and/or symptoms were reported involving the gastrointestinal system. Abdomen is round non-distended, obese. : No signs and/or symptoms were reported regarding the genitourinary system. Derm: Skin is pink, warm \T\ dry. Historical: - Allergies: 20:08 PENICILLINS; ha1 - Home Meds: 20:08 metformin 1 Oral tablet 2 times per day [Active]; lisinopril 20 mg Oral tablet once ha1 [Active]; Plavix Oral [Active]; Glimepiride Oral 1 tab 2 times per day for Type 2 Diabetes Mellitus [Active]; - PMHx: 20:08 Diabetes - NIDDM; Hypertension; ha1 - Immunization history:: Adult Immunizations up to date. - Infectious Disease History:: Denies. - Family history:: not pertinent. - Social history:: Smoking status: Patient denies any tobacco usage or history of. Screenin:00 [facility] ED Fall Risk Assessment (Adult) History of falling in the last 3 months, rg5 including since admission No falls in past 3 months (0 pts) Confusion or Disorientation No (0 pts) Intoxicated or Sedated No (0 pts) Impaired Gait No (0 pts) Mobility Assist Device Used No (0 pt) Altered Elimination No (0 pt) Score/Fall Risk Level 0 - 2 = Low Risk Oriented to surroundings, Maintained a safe environment, Hourly rounding (assess needs \T\ fall precautionary measures) done. Abuse screen: Denies threats or abuse. Nutritional screening: No deficits noted. Tuberculosis screening: No symptoms or risk factors identified. Assessment: 20:00 General: Appears in no apparent distress. comfortable, Behavior is calm, cooperative, rg5 appropriate for age. 20:00 Pain: Denies pain. Neuro: Level of Consciousness is awake, alert, obeys commands, rg5 Oriented to person, place, time, situation. Cardiovascular: Denies chest pain, Patient's skin is warm and dry. Rhythm is sinus rhythm. Respiratory: Reports shortness of breath at rest Airway is patent Trachea midline Respiratory effort is even, unlabored, Respiratory pattern is regular, symmetrical, Breath sounds are clear. GI: Abdomen is round non-distended. : No signs and/or symptoms were reported regarding the genitourinary system. EENT: No deficits noted. Derm: Skin is intact, Skin is dry, Skin is normal, Skin temperature is warm. Musculoskeletal: Circulation, motion, and sensation intact. Capillary refill < 3 seconds, Range of motion: intact in all extremities. 21:33 Reassessment: No changes from previously documented assessment. Patient and/or family rg5 updated on plan of care and expected duration. Pain level reassessed. 22:25 Reassessment: No changes from previously documented assessment. Patient and/or family rg5 updated on plan of care and expected duration. Pain level reassessed. Patient states feeling better. Vital Signs: 19:55 BP 122 / 97; Pulse 97; Resp 17 S; Temp 98.2; Pulse Ox 100% on R/A; Weight 97.52 kg; ha1 Height 5 ft. 9 in. ; 20:34 BP 133 / 81; Pulse 83; Resp 18; Pulse Ox 100% on R/A; Pain 0/10; rg5 21:23 BP 139 / 80; Pulse 95; Resp 18; Pulse Ox 100% on R/A; Pain 0/10; rg5 21:30 BP 142 / 78; Pulse 80; Resp 18; Pulse Ox 87% on R/A; rg5 22:15 BP 135 / 80; Pulse 90; Resp 18; Pulse Ox 99% on R/A; Pain 0/10; rg5 19:55 Body Mass Index 31.75 (97.52 kg, 175.26 cm) ha1 20:34 Pain Scale: Adult rg5 21:23 Pain Scale: Adult rg5 22:15 Pain Scale: Adult rg5 ED Course: 19:52 Patient arrived in ED. [email or web address] 19:56 Eder Hastings MD is Attending Physician. beatrice 19:58 Aramis Velez, RN is Primary Nurse. rg5 20:00 No provider procedures requiring assistance completed. Inserted saline lock: 20 gauge rg5 in right forearm, using aseptic technique. Blood collected. Flushed with 10 mL NS. Patient maintains SpO2 saturation greater than 95% on room air. 20:00 Patient has correct armband on for positive identification. Bed in low position. Call rg5 light in reach. Side rails up X 1. Door closed. Noise minimized. Lights dimmed. Verbal reassurance given. 20:00 Arm band placed on right wrist. rg5 20:00 EKG completed in triage. Results shown to . rg5 20:08 Triage completed. ha1 20:10 EKG done, by ED staff, reviewed by Eder Hastings MD. sa1 20:49 XRAY Chest (1 view) In Process Unspecified. EDMS 21:02 US Extremity Venous W Compression Isidro In Process Unspecified. EDMS 21:26 CT Chest For PE Angio In Process Unspecified. EDMS 21:33 No apparent distress. Resting quietly. Awaiting CT Scan. rg5 22:05 Raya Nevarez MD is Referral Physician. beatrice 22:54 IV discontinued, bleeding controlled, No redness/swelling at site. Pressure dressing rg5 applied. 22:55 Provided Education on: post er care done. rg5 Administered Medications: 20:25 Drug: NS 0.9% IV 1000 ml IV at 1000 ml once; to be given as a bolus over 60 minutes rg5 Route: IV; Rate: 1000 ml; Site: right forearm; 21:08 Follow up: IV Status: Completed infusion; IV Intake: 1000ml rg5 20:25 Drug: Eliquis PO 5 mg PO once Route: PO; rg5 20:39 Follow up: Response: No adverse reaction rg5 21:07 Drug: Potassium PO Effervescent Tablet 25 mEq PO once; dissolve in 4 ounces of water or rg5 juice Route: PO; 22:21 Follow up: Response: No adverse reaction rg5 22:30 Drug: Pantoprazole IVP 40 mg IVP once Route: IVP; Site: right forearm; rg5 22:55 Follow up: Response: No adverse reaction rg5 22:30 Drug: GI Cocktail without - (Maalox PO 30 ml, Lidocaine Mucous Membrane 2 % 15 rg5 ml) PO once Route: PO; 22:55 Follow up: Response: No adverse reaction rg5 22:30 Drug: ALPRAZolam PO Tablet 1 mg PO once Route: PO; rg5 22:55 Follow up: Response: No adverse reaction rg5 Medication: 20:00 VIS not applicable for this client. rg5 Intake: 21:08 IV: 1000ml; Total: 1000ml. rg5 Outcome: 22:05 Discharge ordered by MD. barron 22:54 Discharged to home via wheelchair, rg5 22:54 Condition: stable 22:54 Discharge instructions given to patient, family, Instructed on discharge instructions, follow up and referral plans. Demonstrated understanding of instructions, follow-up care, medications, Prescriptions given X 1, 22:56 Patient left the ED. rg5 Signatures: Dispatcher [employer] EDMS Eder Hastings MD MD cha Jeffries, Jennifer [email or web address] Radha Birmingham RN RN ha1 Aramis Velez RN RN rg5 Sultan leslie Bourne1 Corrections: (The following items were deleted from the chart) 21:46 21:32 BP 139 / 80; Pulse 95bpm; Resp 18bpm; Pulse Ox 100% RA; Pain 0/10, Adult; rg5 rg5
[2024-06-19] MEDS ORDERED: PANTOPRAZOLE 40 MG INJ ONE (22:31)
[2024-06-19] MEDS ORDERED: LIDOCAINE VISCOUS 2% 10ML ORAL SOLN ONE (22:31)
[2024-06-19] MEDS ORDERED: MAGNES/ALUMIN/SIMET 30ML UCUP ONE (22:31)
[2024-06-19] MEDS ORDERED: ALPRAZOLAM 1 MG TABLET ONE (22:32)
[2024-06-19 23:04] VITALS: TEMP 98.2
[2024-06-19 23:09] VITALS: BP 135/80; O2SAT 99
--- NOTE | 2024-06-22 12:49 | EKG ---
Test Date: 2024-06-19 Test Time: 20:05:04 Automatic Toe Laster: MEASUREMENT RESULTS: Intervals: Rate: 93 NC: 176 QRSD: 100 QT: 364 QTc: 452 [place]: P: 14 NC: 176 QRS: 62 T: -1 INTERPRETIVE STATEMENTS: Normal sinus rhythm Normal ECG Compared to ECG 01/09/2024 08:38:20 Incomplete right bundle-branch block no longer present Electronically Signed On 06-22-24 12:44:09 [employer] by Ray Rios
== END 2024-06-19 22:56 | disposition home or self-care (01) ==
LOC: ER 19:50
DX: R06.00 Dyspnea, unspecified (principal); Z96.641 Presence of right artificial hip joint; E87.6 Hypokalemia; K20.90 Esophagitis, unspecified without bleeding; Z79.01 Long term (current) use of anticoagulants; E11.9 Type 2 diabetes mellitus without complications; I10 Essential (primary) hypertension
CPT/HCPCS: 96361; 93005; 85025; 80048; 36415; 83735; 85610; 80076; 84484; 83880; 71275; 71045; 93970; 96374; 99285; Q9967; J2470; J7030